=== PATIENT | male | born 1975 | race Caucasian/White ===

== ENCOUNTER 2017-08-22 17:26 | Inpatient (IN) ==
[2017-08-22 20:06] LABS: BASOPHILS % (AUTO) 0.8 % (0.2-1.0); EOSINOPHILS % (AUTO) 0.2 % (0.9-2.9); HEMATOCRIT 35.4 % (42.0-54.0); HEMOGLOBIN 11.7 g/dL (13.5-18.0); LYMPHOCYTES # (AUTO) 1.2 X10^3/uL (1.3-2.9); LYMPHOCYTES % (AUTO) 21.2 % (21.0-51.0); MEAN CORPUSCULAR HEMOGLOBIN 27.2 pg (27.0-34.0); MEAN CORPUSCULAR VOLUME 82.4 fL (80.0-100.0); MEAN PLATELET VOLUME 6.9 fL (7.4-11.0); MONOCYTES # (AUTO) 0.9 x10^3/uL (0.3-0.8); MONOCYTES % (AUTO) 15.7 % (0.0-13.0); NEUTROPHILS # (AUTO) 3.6 x10^3/uL (2.2-4.8); NEUTROPHILS % (AUTO) 62.1 % (42.0-75.0); PLATELET COUNT 327 X10^3/uL (150.0-450.0); RED CELL DISTRIBUTION WIDTH 17.9 % (11.6-16.5); WHITE BLOOD COUNT 5.8 X10^3/uL (3.6-10.0)
[2017-08-22 20:14] LABS: ALANINE AMINOTRANSFERASE 22 Units/L (12-78); ALBUMIN 2.2 g/dL (3.4-5.0); ALKALINE PHOSPHATASE 124 Units/L (46-116); ASPARTATE AMINO TRANSFERASE 23 Units/L (15-37); BLOOD UREA NITROGEN 18 mg/dL (7-18); CALCIUM 8.4 mg/dL (8.5-10.1); CARBON DIOXIDE 30.3 mmol/L (21-32); CHLORIDE 98 mmol/L (98-107); COR CA(FOR HYPOALB) 9.8 mg/dL (8.5-10.1); COR NA(FOR HYPERGLY) 136 mmol/L (136-145); CREATININE 0.75 mg/dL (0.70-1.30); SODIUM 135 mmol/L (136-145); TOTAL PROTEIN 6.5 g/dL (6.4-8.2); eGFR NON BLACK RACES > 60 (>60)
--- NOTE | 2017-08-22 21:20 | US ---
HISTORY: Abdominal pain and distention Study: Ultrasound the abdomen Comparison: None Technique: Multiple bennett scale and color flow Doppler images of the abdomen were obtained. Findings: The liver was incompletely visualized due to shadowing from overlying ribs and bowel gas. No definite shadowing echogenic stones are appreciated within the gallbladder. The right kidney measures 13.1 x 5.9 x 7.0 cm. The left kidney, spleen, pancreas, and inferior vena cava were not visualized/obscured by bowel. IMPRESSION: 1. Limited exam demonstrates no gross abnormalities as noted above. Reported By:
[2017-08-22 22:03] VITALS: BMI 29.5
[2017-08-23] MEDS ORDERED: TYLENOL SUPP 650 MG PR PRN (03:28)
[2017-08-23 04:11] LABS: EOSINOPHILS % (AUTO) 0.2 % (0.9-2.9); HEMATOCRIT 31.9 % (42.0-54.0); HEMOGLOBIN 10.8 g/dL (13.5-18.0); LYMPHOCYTES # (AUTO) 0.8 X10^3/uL (1.3-2.9); LYMPHOCYTES % (AUTO) 19.5 % (21.0-51.0); MEAN CORPUSCULAR HEMOGLOBIN 27.7 pg (27.0-34.0); MEAN CORPUSCULAR HGB CONC 33.8 g/dL (33.0-35.0); MEAN CORPUSCULAR VOLUME 81.9 fL (80.0-100.0); MEAN PLATELET VOLUME 6.8 fL (7.4-11.0); MONOCYTES # (AUTO) 0.6 x10^3/uL (0.3-0.8); MONOCYTES % (AUTO) 14.3 % (0.0-13.0); NEUTROPHILS # (AUTO) 2.7 x10^3/uL (2.2-4.8); PLATELET COUNT 282 X10^3/uL (150.0-450.0); RED CELL DISTRIBUTION WIDTH 17.5 % (11.6-16.5); WHITE BLOOD COUNT 4.2 X10^3/uL (3.6-10.0)
[2017-08-23 04:28] LABS: ALANINE AMINOTRANSFERASE 21 Units/L (12-78); ALKALINE PHOSPHATASE 104 Units/L (46-116); ASPARTATE AMINO TRANSFERASE 24 Units/L (15-37); BLOOD UREA NITROGEN 17 mg/dL (7-18); CALCIUM 8.1 mg/dL (8.5-10.1); CARBON DIOXIDE 29.9 mmol/L (21-32); CHLORIDE 99 mmol/L (98-107); COR CA(FOR HYPOALB) 9.7 mg/dL (8.5-10.1); CREATININE 0.71 mg/dL (0.70-1.30); TOTAL PROTEIN 5.7 g/dL (6.4-8.2); eGFR NON BLACK RACES > 60 (>60)
[2017-08-23 04:33] LABS: COR NA(FOR HYPERGLY) 134 mmol/L (136-145); SODIUM 133 mmol/L (136-145)
[2017-08-23] MEDS ORDERED: K-LYTE EFFERVESCENT PO PRN (04:41)
[2017-08-23] MEDS ORDERED: POTASSIUM CHL 40 MEQ/NS 0.45% 500 ML IV PRN (04:41)
[2017-08-23] MEDS ORDERED: POTASSIUM CHLORIDE LIQ 20 MEQ UDC PO PRN (04:41)
[2017-08-23] MEDS ORDERED: POTASSIUM CHL 60 MEQ/NS 0.45% 500 ML IV PRN (04:41)
[2017-08-23] MEDS ORDERED: K-RIDER 10 MEQ/NS 100 ML 10 MEQ/100 ML BAG IV PRN ×2 (04:41→04:43)
[2017-08-23] MEDS ORDERED: MAGNESIUM SULFATE 1 GRAM/100 mL PREMIX 1 GM/100 ML BAG IV PRN (04:43)
[2017-08-23] MEDS ORDERED: NS 250 ML IV 250 ML IV ONE (05:39)
[2017-08-23] MEDS ORDERED: ZOFRAN TAB 4 MG PO PRN (08:30)
[2017-08-23] MEDS ORDERED: ALPRAZOLAM 2 MG PO PRN (08:30)
[2017-08-23] MEDS ORDERED: LOMOTIL PO PRN (08:30)
[2017-08-23] MEDS ORDERED: DURAGESIC 100 mcg/HR PATCH TD SCH (09:00)
[2017-08-23] MEDS ORDERED: XANAX PO SCH (11:00)
[2017-08-23] MEDS ORDERED: TYLENOL 325 MG TAB PO PRN (12:10)
--- NOTE | 2017-08-23 12:16 | DR.H&P ---
H&P - History & Physical for Day of: H&P Date: 08/22/17 - Chief Complaint Chief Complaint: abdominal pain and distention - History of Present Illness History of Present Illness: is a 41 year old patient of ours who presented to the hospital as a direct admission from [facility] with reports of abdominal pain and distention as well as a swollen scrotum. Patient was given dilaudid 2mg po x 4 doses today without improvement in pain. He denies regular bowel movements due to frequent use of narcotics. Patient states that eariler today he was given medications for bowels and had a large bowel movement prior to admission. He reports improvement in pain and swelling since having a bowel movement. Medical History: Migraines, Heart Murmor, Gerd, Constipation, Diarrhea, Neuromuscular Dysfunction of Bladder, Back Pain, Paraplegia, Polyneuropathy, Anemia, DVT, Malignant Melanoma w/Metastisis. On admission, vitals were 97.9-00-22-92%ra-98/73. Labs were obtained. Abnormal lab values include the following: RBC 4.30, Hgb 11.7, Hct 35.4, RDW 17.9, MPV 6.9, Sodium 135, Potassium 3.1, Glucose 128, Calcium 8.4, Alk Phos 124, Albumin 2.2, A/G Ratio 0.5. An abdomen Ultrasound was obtained and revealed: The liver was incompletely visualized due to shadowing from overlying ribs and bowel gas. No definite shadowing echogenic stones are appreciated within the gallbladder. The right kidney measures 13.1 x 5.9 x 7.0 cm. The left kidney, spleen, pancreas, and inferior vena cava were not visualized/obscured by bowel. was consulted and no surgical intervention is recommended at this time. We plan to follow up with am labs and continue to monitor patient. - Past Medical History Past Medical History: Anemia, Migraines, GERD Additional Medical History: constipation, constipation, neuomuscular dysfunction of bladder, paraplegia, polyneuropathy, dvt, malignant melanoma wiht metastisis, back pain - Social History Alcohol Use: None Drug Use: None - Medications Home Medications: Penicillins Allergy (Verified 08/23/17 02:41) Sulfa (Sulfonamide Antibiotics) Allergy (Verified 08/23/17 02:41) CONTINUE taking the following medications alprazolam [Xanax] 2 mg PO DAILY PRN 08/22/17 [History] amitriptyline 2 tab PO HS 08/22/17 [History] apixaban [Eliquis] 1 tab PO BID 08/22/17 [History] carisoprodol 350 mg PO TID 08/22/17 [History] dabrafenib 2 cap PO BID 08/22/17 [History] dabrafenib [Tafinlar] 2 cap PO Q12H 08/22/17 [History] dexamethasone 1 tab PO BID 08/22/17 [History] diphenoxylate-atropine [Lomotil] 2 tab PO QID 08/22/17 [History] doxycycline hyclate 100 mg PO BID 08/22/17 [History] fentanyl See Label Instructions .ROUTE .COMPLEX 08/22/17 [History] fentanyl [Duragesic] See Label Instructions .ROUTE .COMPLEX 08/22/17 [History] furosemide [Lasix] 1 tab PO BID 08/22/17 [History] gabapentin 1 cap PO TID 08/22/17 [History] hydromorphone 1 tab PO Q2H PRN 08/22/17 [History] obkjzi-nyilhuyf-dackcgd [Creon] 1 cap PO AC 08/22/17 [History] lorazepam [Ativan] 2 mg PO HS PRN 08/22/17 [History] metoclopramide HCl [Reglan] 1 tab PO QID 08/22/17 [History] ondansetron HCl [Zofran] 1 tab PO Q6H PRN 08/22/17 [History] pantoprazole 1 tab PO DAILY 08/22/17 [History] potassium chloride 40 meq PO BID 08/22/17 [History] ranitidine HCl [Zantac] 1 tab PO BID 08/22/17 [History] trametinib [Mekinist] 1 tab PO DAILY 08/22/17 [History] - Review of Systems Constitutional: Weakness Eyes: No Symptoms Reported ENT: No Symptoms Reported Respiratory: No Symptoms Reported Cardiovascular: No Symptoms Reported Gastrointestinal: See HPI, Abdominal Pain, Constipation Genitourinary: No Symptoms Reported Musculoskeletal: Back Pain Skin: No Symptoms Reported Neurological: Weakness - Physical Exam Vital Signs: Temperature 102.1 F Pulse Rate [Left Radial] 120 Respiratory Rate 24 Blood Pressure [Left Arm] 111/67 O2 Sat by Pulse Oximetry 91 Oriented: Normal Eyes: Normal Ear: Normal Nose: Normal Throat: Normal Respiratory: Diminished Throughout Cardiovascular: Murmur. negative: S3, S4 : Normal Auscultation: Bowel Sounds: Decreased Palpation: Normal Tenderness: Diffuse, Moderate, Guarding. negative: Rebound, Rigidity Skin: Normal Musculoskeletal: Back:Lumbar Psychiatric: Normal Mood Description: Calm Affect: Normal Speech Pattern: Clear - Assessment/Plan (1) Abdominal pain Qualifiers: Abdominal location: generalized Qualified Code(s): R10.84 - Generalized abdominal pain Status: Acute - Allergies Allergies/Adverse Reactions: Allergies Allergy/AdvReac Type Severity Reaction Status Date / Time Penicillins Allergy Verified 08/23/17 02:41 Sulfa (Sulfonamide Allergy Verified 08/23/17 02:41 Antibiotics)
[2017-08-23] MEDS: MICRO K EXTEN CAP 10 MEQ PO SCH ×2 (12:31→21:00)
[2017-08-23] MEDS: DECADRON TAB PO SCH ×2 (12:31→21:02)
[2017-08-23] MEDS: ZANTAC PO SCH ×2 (12:31→21:00)
[2017-08-23] MEDS: NEURONTIN CAP 300 MG PO SCH ×3 (12:32→21:01)
[2017-08-23] MEDS: REGLAN TAB 10 MG PO SCH ×4 (12:32→21:02)
[2017-08-23] MEDS: SOMA TAB 350 MG PO SCH ×3 (12:32→21:01)
[2017-08-23] MEDS: CREON PO SCH ×2 (12:32→17:30)
[2017-08-23] MEDS: PROTONIX TAB 40 MG PO SCH (12:32)
[2017-08-23] MEDS: DABRAFENIB PO SCH ×2 (12:37→21:03)
[2017-08-23] MEDS: TRAMETINIB PO SCH (12:39)
[2017-08-23] MEDS ORDERED: DILAUDID PO ONE (12:45)
[2017-08-23] MEDS: DILAUDID PO PRN (12:51)
[2017-08-23] MEDS: XANAX PO PRN (12:51)
--- NOTE | 2017-08-23 17:30 | DR.PROGNOT ---
Hospital Progress Notes - Progress Note for Day of: Progress Note Date: 08/23/17 - Chief Complaint Chief Complaint: less abdominal pain but still distended . no nausea or vomiting today ,. abdominal US showed no significant ascitis , - Past Medical Family Social History Past Med/Fam/Surg Hx: No changes since H&P Allergies: Allergies Penicillins Allergy (Verified 08/23/17 02:41) Sulfa (Sulfonamide Antibiotics) Allergy (Verified 08/23/17 02:41) - Review Of Systems ROS: No change since H&P - Vital Signs Vital Signs: Temperature 102.1 F Pulse Rate [Left Radial] 120 Respiratory Rate 24 Blood Pressure [Left Arm] 111/67 O2 Sat by Pulse Oximetry 91 - Physical Exam Oriented: Normal Eyes: Normal Ear: Normal Nose: Normal Throat: Normal Cardiovascular: Murmur. negative: S3, S4 : Normal GI:Auscultation: Decreased GI:Palpation: Normal GI: Tenderness: Diffuse, Moderate. negative: Rebound, Rigidity Skin: Normal Musculoskeletal: Back:Lumbar Psychiatric: Normal Mood Description: Calm Affect: Normal Speech Pattern: Clear - Laboratory and Diagnostics Result Diagrams: 08/23/17 03:51 08/23/17 03:51 Labs: Laboratory WBC 4.2 X10^3/uL (3.6-10.0) 08/23/17 03:51 RBC 3.90 X10^6/uL (4.7-6.0) L 08/23/17 03:51 Hgb 10.8 g/dL (13.5-18.0) L 08/23/17 03:51 Hct 31.9 % (42.0-54.0) L 08/23/17 03:51 MCV 81.9 fL (80.0-100.0) 08/23/17 03:51 MCH 27.7 pg (27.0-34.0) 08/23/17 03:51 MCHC 33.8 g/dL (33.0-35.0) 08/23/17 03:51 RDW 17.5 % (11.6-16.5) H 08/23/17 03:51 Plt Count 282 X10^3/uL (150.0-450.0) 08/23/17 03:51 MPV 6.8 fL (7.4-11.0) L 08/23/17 03:51 Neut % (Auto) 65.0 % (42.0-75.0) 08/23/17 03:51 Lymph % (Auto) 19.5 % (21.0-51.0) L 08/23/17 03:51 [place] % (Auto) 14.3 % (0.0-13.0) H 08/23/17 03:51 Eos % (Auto) 0.2 % (0.9-2.9) L 08/23/17 03:51 Baso % (Auto) 1.0 % (0.2-1.0) 08/23/17 03:51 Neut # (Auto) 2.7 x10^3/uL (2.2-4.8) 08/23/17 03:51 Lymph # (Auto) 0.8 X10^3/uL (1.3-2.9) L 08/23/17 03:51 [place] # (Auto) 0.6 x10^3/uL (0.3-0.8) 08/23/17 03:51 Eos # (Auto) 0.0 x10^3/uL (0.0-0.2) 08/23/17 03:51 Baso # (Auto) 0.0 X10^3/uL (0.0-0.1) 08/23/17 03:51 Absolute Nucleated RBC 0.1 /100WBC 08/23/17 03:51 Sodium 133 mmol/L (136-145) L 08/23/17 03:51 Corrected Sodium 134 mmol/L (136-145) L 08/23/17 03:51 Potassium 2.9 mmol/L (3.5-5.1) L* 08/23/17 03:51 Chloride 99 mmol/L (98-107) 08/23/17 03:51 Carbon Dioxide 29.9 mmol/L (21-32) 08/23/17 03:51 BUN 17 mg/dL (7-18) 08/23/17 03:51 Creatinine 0.71 mg/dL (0.70-1.30) 08/23/17 03:51 Est GFR (MDRD) Af Amer > 60 (>60) 08/23/17 03:51 Est GFR (MDRD) Non-Af > 60 (>60) 08/23/17 03:51 Glucose 135 mg/dL (65-99) H 08/23/17 03:51 Calcium 8.1 mg/dL (8.5-10.1) L 08/23/17 03:51 Corrected Calcium 9.7 mg/dL (8.5-10.1) 08/23/17 03:51 Magnesium 1.5 mg/dL (1.7-2.9) L 08/23/17 03:51 Total Bilirubin 0.20 mg/dL (0.2-1.0) 08/23/17 03:51 AST 24 Units/L (15-37) 08/23/17 03:51 ALT 21 Units/L (12-78) 08/23/17 03:51 Alkaline Phosphatase 104 Units/L (46-116) 08/23/17 03:51 Total Protein 5.7 g/dL (6.4-8.2) L 08/23/17 03:51 Albumin 2.0 g/dL (3.4-5.0) L 08/23/17 03:51 Globulin 3.7 g/dL (2.5-4.5) 08/23/17 03:51 Albumin/Globulin Ratio 0.5 Ratio (1.1-2.1) L 08/23/17 03:51 - Assessment and Plan 1: abdominal pain and distention . ileus . metastatic melanoma . no need for parasenthesis now - Problem Patient Problems: Patient Problems Abdominal pain (Acute) R10.9
[2017-08-23] MEDS: ATIVAN TAB 1 MG PO PRN (21:00)
[2017-08-23] MEDS: ELAVIL PO SCH (21:00)
[2017-08-23] MEDS: MAG-OX TAB PO SCH (21:02)
[2017-08-24] MEDS: NEURONTIN CAP 300 MG PO SCH ×3 (05:49→22:31)
[2017-08-24] MEDS: SOMA TAB 350 MG PO SCH ×3 (05:50→22:31)
[2017-08-24] MEDS: CREON PO SCH ×3 (06:04→17:43)
[2017-08-24 06:47] LABS: BASOPHILS % (AUTO) 0.5 % (0.2-1.0); EOSINOPHILS % (AUTO) 0.1 % (0.9-2.9); HEMATOCRIT 29.7 % (42.0-54.0); HEMOGLOBIN 10.1 g/dL (13.5-18.0); LYMPHOCYTES # (AUTO) 0.6 X10^3/uL (1.3-2.9); LYMPHOCYTES % (AUTO) 17.1 % (21.0-51.0); MEAN CORPUSCULAR HEMOGLOBIN 27.9 pg (27.0-34.0); MEAN CORPUSCULAR VOLUME 82.2 fL (80.0-100.0); MEAN PLATELET VOLUME 7.1 fL (7.4-11.0); MONOCYTES # (AUTO) 0.4 x10^3/uL (0.3-0.8); MONOCYTES % (AUTO) 11.8 % (0.0-13.0); NEUTROPHILS # (AUTO) 2.5 x10^3/uL (2.2-4.8); NEUTROPHILS % (AUTO) 70.5 % (42.0-75.0); PLATELET COUNT 268 X10^3/uL (150.0-450.0); RED BLOOD COUNT 3.61 X10^6/uL (4.7-6.0); RED CELL DISTRIBUTION WIDTH 17.1 % (11.6-16.5); WHITE BLOOD COUNT 3.6 X10^3/uL (3.6-10.0)
[2017-08-24 07:12] LABS: ALANINE AMINOTRANSFERASE 24 Units/L (12-78); ALBUMIN 1.9 g/dL (3.4-5.0); ALKALINE PHOSPHATASE 109 Units/L (46-116); ASPARTATE AMINO TRANSFERASE 32 Units/L (15-37); BLOOD UREA NITROGEN 14 mg/dL (7-18); CALCIUM 8.7 mg/dL (8.5-10.1); CARBON DIOXIDE 30.1 mmol/L (21-32); CHLORIDE 102 mmol/L (98-107); COR CA(FOR HYPOALB) 10.4 mg/dL (8.5-10.1); COR NA(FOR HYPERGLY) 137 mmol/L (136-145); CREATININE 0.53 mg/dL (0.70-1.30); SODIUM 137 mmol/L (136-145); TOTAL PROTEIN 5.7 g/dL (6.4-8.2); eGFR NON BLACK RACES > 60 (>60)
[2017-08-24] MEDS: PROTONIX TAB 40 MG PO SCH (09:12)
[2017-08-24] MEDS: MICRO K EXTEN CAP 10 MEQ PO SCH ×2 (09:12→20:15)
[2017-08-24] MEDS: REGLAN TAB 10 MG PO SCH ×4 (09:12→20:14)
[2017-08-24] MEDS: LASIX PO SCH ×2 (09:13→20:16)
[2017-08-24] MEDS: MAG-OX TAB PO SCH ×2 (09:13→20:16)
[2017-08-24] MEDS: ZANTAC PO SCH ×2 (09:13→20:16)
[2017-08-24] MEDS: DECADRON TAB PO SCH ×2 (09:13→20:16)
[2017-08-24] MEDS: TRAMETINIB PO SCH (09:14)
[2017-08-24] MEDS: DABRAFENIB PO SCH ×2 (09:14→20:13)
[2017-08-24] MEDS: XANAX PO PRN (12:02)
[2017-08-24] MEDS ORDERED: DILAUDID PO ONE ×2 (20:00→23:14)
[2017-08-24] MEDS: DILAUDID PO PRN (20:14)
[2017-08-24] MEDS: ATIVAN TAB 1 MG PO PRN (20:15)
[2017-08-24] MEDS: ELAVIL PO SCH (20:16)
--- NOTE | 2017-08-24 21:35 | PCM.PROG ---
Progress Note - Progress Note for Day of Date of Exam: 08/23/17 - Subjective Subjective: WAS ADMITTED FOR ABDOMINAL PAIN AND SWELLING. TODAY, HE IS LYING IN BED WITH EYES CLOSED ON MORNING ROUNDS. HE IS DIFFICULT TO AROUSE THIS MORNING. FAMILY REPORTS THAT HE HAS BEEN RESTLESS THROUGHOUT THE NIGHT. THEY REPORT THAT PATIENT DID ADMIT TO FEELING BETTER AFTER HAVING A BOWEL MOVEMENT YESTERDAY. ON EXAMINATION, HEART IS REGULAR IN RATE AND RHYTHM. BILATERAL LUNGS ARE NOTED WITH DIMINISHED LUNG SOUNDS THROUGHOUT. ABDOMEN IS DISTENDED WITH HYPOACTIVE BOWEL SOUNDS THROUGHOUT. HIS VITALS THIS MORNING ARE 99.2-110-18-96%-115/78. ABNORMAL LABS INCLUDE THE FOLLOWING: RBC 3.90, HGB 10.8 , HCT 31.9, SODIUM 133, POTASSIUM 2.9, GLUOCSE 135, CALCIUM 8.1, MAGNESIUM 1.5, TOTAL PROTEIN 5.7, ALBUMIN 2.0. ABDOMEN ULTRASOUND OBTAINED ON ADMISSION REVEALED: The liver was incompletely visualized due to shadowing from overlying ribs and bowel gas. No definite shadowing echogenic stones are appreciated within the gallbladder. The right kidney measures 13.1 x 5.9 x 7.0 cm. The left kidney, spleen, pancreas, and inferior vena cava were not visualized/obscured by bowel. TODAY, WE WILL START COLACE 100MG PO BID. OTHERWISE, WE WILL CONTINUE WITH CURRENT PLAN OF CARE. WE PLAN TO FOLLOW UP WITH AM LABS AND CONTINUE TO MONITOR PATIENT. - Past Medical Family Social History Past Med/Fam/Surg Hx: No changes since H&P Allergies: Allergies Penicillins Allergy (Verified 08/23/17 02:41) Sulfa (Sulfonamide Antibiotics) Allergy (Verified 08/23/17 02:41) - Review of Systems ROS: No change since H&P - Vital Signs and I&O's Vital Signs: Temperature 97.9 F Pulse Rate [Left Brachial] 102 Pulse Rate [Left Radial] 120 Respiratory Rate 20 Blood Pressure [Left Arm] 110/73 O2 Sat by Pulse Oximetry 98 Intake and Output: Intake & Output 08/22/17 08/23/17 08/24/17 08/25/17 11:59 11:59 11:59 11:59 Intake Total 210 / 210 740 / 740 940 / 940 Output Total 800 / 800 1400 / 1400 1000 / 1000 Balance -590 / -590 -660 / -660 -60 / -60 - Physical Exam Oriented: Normal Eyes: Normal Ear: Normal Nose: Normal Throat: Normal Respiratory: Generalized, Diminished Cardiovascular: Murmur. negative: S3, S4 : Normal Auscultation: Bowel Sounds: Decreased Palpation: Normal Tenderness: Diffuse, Moderate. negative: Rebound, Rigidity Skin: Normal Musculoskeletal: Back:Lumbar Psychiatric: Normal Mood Description: Calm Affect: Normal Speech Pattern: Clear, Appropriate - Laboratory and Diagnostics Result Diagrams: 08/24/17 05:55 08/24/17 05:55 Labs: Laboratory WBC 3.6 X10^3/uL (3.6-10.0) 08/24/17 05:55 RBC 3.61 X10^6/uL (4.7-6.0) L 08/24/17 05:55 Hgb 10.1 g/dL (13.5-18.0) L 08/24/17 05:55 Hct 29.7 % (42.0-54.0) L 08/24/17 05:55 MCV 82.2 fL (80.0-100.0) 08/24/17 05:55 MCH 27.9 pg (27.0-34.0) 08/24/17 05:55 MCHC 34.0 g/dL (33.0-35.0) 08/24/17 05:55 RDW 17.1 % (11.6-16.5) H 08/24/17 05:55 Plt Count 268 X10^3/uL (150.0-450.0) 08/24/17 05:55 MPV 7.1 fL (7.4-11.0) L 08/24/17 05:55 Neut % (Auto) 70.5 % (42.0-75.0) 08/24/17 05:55 Lymph % (Auto) 17.1 % (21.0-51.0) L 08/24/17 05:55 [place] % (Auto) 11.8 % (0.0-13.0) 08/24/17 05:55 Eos % (Auto) 0.1 % (0.9-2.9) L 08/24/17 05:55 Baso % (Auto) 0.5 % (0.2-1.0) 08/24/17 05:55 Neut # (Auto) 2.5 x10^3/uL (2.2-4.8) 08/24/17 05:55 Lymph # (Auto) 0.6 X10^3/uL (1.3-2.9) L 08/24/17 05:55 [place] # (Auto) 0.4 x10^3/uL (0.3-0.8) 08/24/17 05:55 Eos # (Auto) 0.0 x10^3/uL (0.0-0.2) 08/24/17 05:55 Baso # (Auto) 0.0 X10^3/uL (0.0-0.1) 08/24/17 05:55 Absolute Nucleated RBC 0.0 /100WBC 08/24/17 05:55 Sodium 137 mmol/L (136-145) 08/24/17 05:55 Corrected Sodium 137 mmol/L (136-145) 08/24/17 05:55 Potassium 4.5 mmol/L (3.5-5.1) 08/24/17 05:55 Chloride 102 mmol/L (98-107) 08/24/17 05:55 Carbon Dioxide 30.1 mmol/L (21-32) 08/24/17 05:55 BUN 14 mg/dL (7-18) 08/24/17 05:55 Creatinine 0.53 mg/dL (0.70-1.30) L 08/24/17 05:55 Est GFR (MDRD) Af Amer > 60 (>60) 08/24/17 05:55 Est GFR (MDRD) Non-Af > 60 (>60) 08/24/17 05:55 Glucose 112 mg/dL (65-99) H 08/24/17 05:55 Calcium 8.7 mg/dL (8.5-10.1) 08/24/17 05:55 Corrected Calcium 10.4 mg/dL (8.5-10.1) H 08/24/17 05:55 Magnesium 1.5 mg/dL (1.7-2.9) L 08/23/17 03:51 Total Bilirubin 0.20 mg/dL (0.2-1.0) 08/24/17 05:55 AST 32 Units/L (15-37) 08/24/17 05:55 ALT 24 Units/L (12-78) 08/24/17 05:55 Alkaline Phosphatase 109 Units/L (46-116) 08/24/17 05:55 Total Protein 5.7 g/dL (6.4-8.2) L 08/24/17 05:55 Albumin 1.9 g/dL (3.4-5.0) L 08/24/17 05:55 Globulin 3.8 g/dL (2.5-4.5) 08/24/17 05:55 Albumin/Globulin Ratio 0.5 Ratio (1.1-2.1) L 08/24/17 05:55 - Plan (1) Abdominal pain Status: Acute Qualifiers: Abdominal location: generalized Qualified Code(s): R10.84 - Generalized abdominal pain Plan: CONTINUE PAIN MEDICATION, COLACE 100MG PO BID, CONTINUE TO MONITOR
[2017-08-25] MEDS: DILAUDID PO PRN ×2 (00:08→11:20)
[2017-08-25] MEDS: DECADRON TAB PO SCH ×2 (01:44→08:34)
[2017-08-25] MEDS ORDERED: DILAUDID PO ONE ×2 (04:48→11:11)
[2017-08-25 05:23] LABS: BASOPHILS % (AUTO) 0.3 % (0.2-1.0); EOSINOPHILS % (AUTO) 0.9 % (0.9-2.9); HEMATOCRIT 30.3 % (42.0-54.0); HEMOGLOBIN 10.3 g/dL (13.5-18.0); LYMPHOCYTES # (AUTO) 1.4 X10^3/uL (1.3-2.9); LYMPHOCYTES % (AUTO) 28.5 % (21.0-51.0); MEAN CORPUSCULAR HEMOGLOBIN 27.6 pg (27.0-34.0); MEAN CORPUSCULAR HGB CONC 33.9 g/dL (33.0-35.0); MEAN CORPUSCULAR VOLUME 81.4 fL (80.0-100.0); MEAN PLATELET VOLUME 7.2 fL (7.4-11.0); MONOCYTES # (AUTO) 0.7 x10^3/uL (0.3-0.8); MONOCYTES % (AUTO) 15.5 % (0.0-13.0); NEUTROPHILS # (AUTO) 2.6 x10^3/uL (2.2-4.8); NEUTROPHILS % (AUTO) 54.8 % (42.0-75.0); PLATELET COUNT 298 X10^3/uL (150.0-450.0); RED BLOOD COUNT 3.72 X10^6/uL (4.7-6.0); RED CELL DISTRIBUTION WIDTH 17.7 % (11.6-16.5); WHITE BLOOD COUNT 4.8 X10^3/uL (3.6-10.0)
[2017-08-25 05:34] LABS: ALANINE AMINOTRANSFERASE 25 Units/L (12-78); ALKALINE PHOSPHATASE 98 Units/L (46-116); ASPARTATE AMINO TRANSFERASE 26 Units/L (15-37); BLOOD UREA NITROGEN 14 mg/dL (7-18); CALCIUM 8.6 mg/dL (8.5-10.1); CARBON DIOXIDE 29.3 mmol/L (21-32); CHLORIDE 100 mmol/L (98-107); COR CA(FOR HYPOALB) 10.2 mg/dL (8.5-10.1); SODIUM 136 mmol/L (136-145); TOTAL PROTEIN 5.9 g/dL (6.4-8.2); eGFR NON BLACK RACES > 60 (>60)
--- NOTE | 2017-08-25 06:04 | RAD ---
Abdomen radiograph-single view Indication: Constipation Comparison: 08/08/2017 CT and 08/22/2017 ultrasound Findings: There is gas and stool in the colon with dilated rectum. No free air or pneumatosis seen. Impression: Dilated loops of colon. This appears to represent the rectum, but colonic obstruction is not excluded. Sigmoid volvulus not completely excluded either. Consider cross-sectional imaging follo w-up. Reported By:
[2017-08-25] MEDS: SOMA TAB 350 MG PO SCH ×2 (06:37→13:23)
[2017-08-25] MEDS: NEURONTIN CAP 300 MG PO SCH ×2 (06:37→13:23)
[2017-08-25] MEDS: CREON PO SCH ×2 (06:38→12:00)
[2017-08-25] MEDS: MAG-OX TAB PO SCH (08:33)
[2017-08-25] MEDS: ZANTAC PO SCH (08:33)
[2017-08-25] MEDS: LASIX PO SCH (08:34)
[2017-08-25] MEDS: XANAX PO SCH ×2 (08:34→13:10)
[2017-08-25] MEDS: REGLAN TAB 10 MG PO SCH ×2 (08:34→13:10)
[2017-08-25] MEDS: MICRO K EXTEN CAP 10 MEQ PO SCH (08:34)
[2017-08-25] MEDS: PROTONIX TAB 40 MG PO SCH (08:34)
[2017-08-25] MEDS: TRAMETINIB PO SCH (08:37)
[2017-08-25] MEDS: DABRAFENIB PO SCH (08:37)
--- NOTE | 2017-08-25 11:35 | RAD ---
Abdomen, one view Indication: Constipation Comparison: 08/24/2017 Findings: Moderate stool and marked gaseous distension of the distal colon is unchanged since yesterd ay's exam. No free air or pneumatosis is identified. Impression: Stable gaseous distension of the distal colon, which again could represent distal colonic obstruction or possibly sigmoid volvulus. Clinical correlation as well as further evaluation with CT should be c onsidered, if indicated. Reported By:
--- NOTE | 2017-08-25 12:58 | PCM.PROG ---
Progress Note - Progress Note for Day of Date of Exam: 08/24/17 - Subjective Subjective: WAS ADMITTED FOR ABDOMINAL PAIN AND SWELLING. TODAY, HE IS ALERT AND ORIENTED, LYING IN BED ON MORNING ROUNDS. HE CONTINUES WITH MILD ABDOMINAL PAIN. HE REPORTS THAT PAIN HAS IMPROVED SINCE HAVING A MODERATE BOWEL MOVEMENT. ON EXAMINATION, HEART IS REGULAR IN RATE AND RHYTHM. BILATERAL LUNGS ARE NOTED WITH DIMINISHED LUNG SOUNDS THROUGHOUT. ABDOMEN IS DISTENDED WITH HYPOACTIVE BOWEL SOUNDS THROUGHOUT. HIS VITALS THIS MORNING ARE 98.2-107-20-94%- 112/76. ABNORMAL LABS INCLUDE THE FOLLOWING: RBC 3.61, HGB 10.1, HCT 29.7, CREATININE 0.53, GLUCOSE 112, TOTAL PROTEIN 5.7, ALBUMIN 1.9. TODAY, WE WILL CONTINUE WITH CURRENT PLAN OF CARE. OTHERWISE WE WILL CONTINUE WITH CURRENT PLAN OF CARE. WE PLAN TO FOLLOW UP WITH AM LABS AND KUB AND WILL CONTINUE TO MONITOR PATIENT. - Past Medical Family Social History Past Med/Fam/Surg Hx: No changes since H&P Allergies: Allergies Penicillins Allergy (Verified 08/23/17 02:41) Sulfa (Sulfonamide Antibiotics) Allergy (Verified 08/23/17 02:41) - Review of Systems ROS: No change since H&P - Vital Signs and I&O's Vital Signs: Temperature 98.7 F Pulse Rate [Left Brachial] 97 Pulse Rate [Left Radial] 120 Respiratory Rate 20 Blood Pressure [Left Arm] 110/69 O2 Sat by Pulse Oximetry 94 Intake and Output: Intake & Output 08/23/17 08/24/17 08/25/17 08/26/17 11:59 11:59 11:59 11:59 Intake Total 210 / 210 740 / 740 1360 / 1360 Output Total 800 / 800 1400 / 1400 2675 / 2675 Balance -590 / -590 -660 / -660 -1315 / -1315 - Physical Exam Oriented: Normal Eyes: Normal Ear: Normal Nose: Normal Throat: Normal Respiratory: Generalized, Diminished Cardiovascular: Murmur. negative: S3, S4 : Normal Auscultation: Bowel Sounds: Decreased Tenderness: Diffuse, Moderate. negative: Rebound, Rigidity Skin: Normal Musculoskeletal: Back:Lumbar Psychiatric: Normal Mood Description: Calm Affect: Normal Speech Pattern: Clear, Appropriate - Laboratory and Diagnostics Result Diagrams: 08/25/17 04:15 08/25/17 04:15 Labs: 08/23/17 03:51 Blood Blood Culture - Preliminary Laboratory WBC 4.8 X10^3/uL (3.6-10.0) 08/25/17 04:15 RBC 3.72 X10^6/uL (4.7-6.0) L 08/25/17 04:15 Hgb 10.3 g/dL (13.5-18.0) L 08/25/17 04:15 Hct 30.3 % (42.0-54.0) L 08/25/17 04:15 MCV 81.4 fL (80.0-100.0) 08/25/17 04:15 MCH 27.6 pg (27.0-34.0) 08/25/17 04:15 MCHC 33.9 g/dL (33.0-35.0) 08/25/17 04:15 RDW 17.7 % (11.6-16.5) H 08/25/17 04:15 Plt Count 298 X10^3/uL (150.0-450.0) 08/25/17 04:15 MPV 7.2 fL (7.4-11.0) L 08/25/17 04:15 Neut % (Auto) 54.8 % (42.0-75.0) 08/25/17 04:15 Lymph % (Auto) 28.5 % (21.0-51.0) 08/25/17 04:15 [place] % (Auto) 15.5 % (0.0-13.0) H 08/25/17 04:15 Eos % (Auto) 0.9 % (0.9-2.9) 08/25/17 04:15 Baso % (Auto) 0.3 % (0.2-1.0) 08/25/17 04:15 Neut # (Auto) 2.6 x10^3/uL (2.2-4.8) 08/25/17 04:15 Lymph # (Auto) 1.4 X10^3/uL (1.3-2.9) 08/25/17 04:15 [place] # (Auto) 0.7 x10^3/uL (0.3-0.8) 08/25/17 04:15 Eos # (Auto) 0.0 x10^3/uL (0.0-0.2) 08/25/17 04:15 Baso # (Auto) 0.0 X10^3/uL (0.0-0.1) 08/25/17 04:15 Absolute Nucleated RBC 0.1 /100WBC 08/25/17 04:15 Sodium 136 mmol/L (136-145) 08/25/17 04:15 Corrected Sodium TNP 08/25/17 04:15 Potassium 3.7 mmol/L (3.5-5.1) 08/25/17 04:15 Chloride 100 mmol/L (98-107) 08/25/17 04:15 Carbon Dioxide 29.3 mmol/L (21-32) 08/25/17 04:15 BUN 14 mg/dL (7-18) 08/25/17 04:15 Creatinine 0.70 mg/dL (0.70-1.30) 08/25/17 04:15 Est GFR (MDRD) Af Amer > 60 (>60) 08/25/17 04:15 Est GFR (MDRD) Non-Af > 60 (>60) 08/25/17 04:15 Glucose 106 mg/dL (65-99) H 08/25/17 04:15 Calcium 8.6 mg/dL (8.5-10.1) 08/25/17 04:15 Corrected Calcium 10.2 mg/dL (8.5-10.1) H 08/25/17 04:15 Magnesium 1.5 mg/dL (1.7-2.9) L 08/23/17 03:51 Total Bilirubin 0.10 mg/dL (0.2-1.0) L 08/25/17 04:15 AST 26 Units/L (15-37) 08/25/17 04:15 ALT 25 Units/L (12-78) 08/25/17 04:15 Alkaline Phosphatase 98 Units/L (46-116) 08/25/17 04:15 Total Protein 5.9 g/dL (6.4-8.2) L 08/25/17 04:15 Albumin 2.0 g/dL (3.4-5.0) L 08/25/17 04:15 Globulin 3.9 g/dL (2.5-4.5) 08/25/17 04:15 Albumin/Globulin Ratio 0.5 Ratio (1.1-2.1) L 08/25/17 04:15 - Plan (1) Abdominal pain Status: Acute Qualifiers: Abdominal location: generalized Qualified Code(s): R10.84 - Generalized abdominal pain Plan: CONTINUE PAIN MEDICATION, COLACE 100MG PO BID, CONTINUE TO MONITOR
[2017-08-25 13:05] VITALS: BP 100/70
--- NOTE | 2017-09-02 00:51 | DR.CARTERD ---
- Discharge Summary for: Discharge Summary for Date of:: 08/25/17 - Admission Date Date of Admission: 08/22/17 - Admission Diagnoses Admission Diagnosis: (1) Abdominal pain (2) Scrotal edema - Discharge Date Discharge Date: 08/25/17 - Discharge Diagnoses Discharge Diagnosis: (1) Abdominal pain (2) Scrotal edema - Hospital Course Hospital Course: Day one, is a 41 year old patient of ours who presented to the hospital as a direct admission from [facility] with reports of abdominal pain and distention as well as a swollen scrotum. Patient was given dilaudid 2mg po x 4 doses earlier in the day without improvement in pain. He denied regular bowel movements due to frequent use of narcotics. Patient stated that earlier in the day he was given medications for bowels and had a large bowel movement prior to admission. He reported improvement in pain and swelling since having a bowel movement. Medical History: Migraines, Heart Murmor, Gerd, Constipation, Diarrhea, Neuromuscular Dysfunction of Bladder, Back Pain, Paraplegia, Polyneuropathy, Anemia, DVT, Malignant Melanoma w/ Metastasis. On admission, vitals were 97.9-00-22-92%ra-98/73. Labs were obtained. Abnormal lab values include the following: RBC 4.30, Hgb 11.7, Hct 35.4, RDW 17.9, MPV 6.9, Sodium 135, Potassium 3.1, Glucose 128, Calcium 8.4, Alk Phos 124, Albumin 2.2, A/G Ratio 0.5. An abdomen Ultrasound was obtained and revealed: The liver was incompletely visualized due to shadowing from overlying ribs and bowel gas. No definite shadowing echogenic stones were appreciated within the gallbladder. The right kidney measures 13.1 x 5.9 x 7.0 cm. The left kidney, spleen, pancreas , and inferior vena cava were not visualized/obscured by bowel. Dr. Whaley was consulted and no surgical intervention was recommended at that time. We continued to monitor patient. Day two, He was resting in bed with eye closed upon rounds and was difficult to arouse. Family reported that he had been restless throughout the night. They reported that patient did admit to feeling better after having a bowel movement the day before. On examination, heart was regular in rate and rhythm. Bilateral lungs were diminished throughout. Abdomen was distended with hypoactive bowel sounds throughout. His vitals were: 99.2-110-18-96%-115/78. Abnormal labs included: rbc 3.90, hgb 10.8, hct 31.9, sodium 133, potassium 2.9, glucose 135, calcium 8.1, magnesium 1.5, tot protein 5.7, albumin 2.0. We started Colace 100mg po bid and we continued to monitor. Day three, He was alert and oriented. He continued with mild abdominal pain. He reported that pain had improved since having a moderate bowel movement. On examination, heart was regular in rate and rhythm. Bilateral lungs were diminished throughout. Abdomen was distended with hypoactive bowel sounds throughout. His vitals were 98.2-107-20-94%-112/76. Abnormal labs were: rbc 3.61 , hgb 10.1, hct 29.9, glucose 112, tot protein 5.7, albumin 1.9. We continued with treatment and monitored. Day four, Patient reported he was feeling better. Patient denied abdominal pain. Labs wnl. Vital signs stable. We planned for discharge. Instructions for medications and follow up were discussed with patient and family, both voiced understanding. Patient discharged to [facility] in stable condition with staff. - Discharge Medications Discharge Medications: Home Medication List alprazolam [Xanax] 2 mg PO DAILY PRN 08/22/17 [History] amitriptyline 2 tab PO HS 08/22/17 [History] apixaban [Eliquis] 1 tab PO BID 08/22/17 [History] carisoprodol 350 mg PO TID 08/22/17 [History] dabrafenib 2 cap PO BID 08/22/17 [History] dabrafenib [Tafinlar] 2 cap PO Q12H 08/22/17 [History] dexamethasone 1 tab PO BID 08/22/17 [History] diphenoxylate-atropine [Lomotil] 2 tab PO QID 08/22/17 [History] doxycycline hyclate 100 mg PO BID 08/22/17 [History] fentanyl See Label Instructions .ROUTE .COMPLEX 08/22/17 [History] fentanyl [Duragesic] See Label Instructions .ROUTE .COMPLEX 08/22/17 [History] furosemide [Lasix] 1 tab PO BID 08/22/17 [History] gabapentin 1 cap PO TID 08/22/17 [History] hydromorphone 1 tab PO Q2H PRN 08/22/17 [History] eiuvtz-nkwdnjdu-xmmxwky [Creon] 1 cap PO AC 08/22/17 [History] lorazepam [Ativan] 2 mg PO HS PRN 08/22/17 [History] metoclopramide HCl [Reglan] 1 tab PO QID 08/22/17 [History] ondansetron HCl [Zofran] 1 tab PO Q6H PRN 08/22/17 [History] pantoprazole 1 tab PO DAILY 08/22/17 [History] potassium chloride 40 meq PO BID 08/22/17 [History] ranitidine HCl [Zantac] 1 tab PO BID 08/22/17 [History] trametinib [Mekinist] 1 tab PO DAILY 08/22/17 [History] docusate sodium [Colace] 100 mg PO BID #60 cap 08/25/17 [Rx] polyethylene glycol 3350 [Miralax] 17 g PO HS #30 ea 08/25/17 [Rx] Prescriptions: docusate sodium [Colace] Conor Og polyethylene glycol 3350 [Miralax] Conor Og - Discharge Disposition Discharge Disposition: We will follow up with patient in one week at half-way.
== END 2017-08-25 13:50 | DRG 392 ==
LOC: MED/SURG 19:19
PROVIDERS: ADMIT Internal Medicine; ATTEND Internal Medicine
DX: K21.9 Gastro-esophageal reflux disease without esophagitis; B96.29 Other Escherichia coli [E. coli] as the cause of diseases classified elsewhere; C79.89 Secondary malignant neoplasm of other specified sites; K56.7 Ileus, unspecified; F41.8 Other specified anxiety disorders; K59.09 Other constipation; G82.20 Paraplegia, unspecified; R82.99 Other abnormal findings in urine; E88.09 Other disorders of plasma-protein metabolism, not elsewhere classified; R10.84 Generalized abdominal pain; N50.89 Other specified disorders of the male genital organs
CPT/HCPCS: 36415; 74000; 74018; 76700; 80053; 81001; 83735; 85025; 87040; 87086; 87088; 87186; A4216; A4222; J3480; J3490; J7050; J8540

== ENCOUNTER 2017-10-01 10:04 | Inpatient (IN) ==
[2017-10-01] MEDS ORDERED: NS 1000 ML 1,000 ML IV SCH (11:37)
[2017-10-01 12:18] LABS: BASOPHILS # (AUTO) 0.1 X10^3/uL (0.0-0.1); BASOPHILS % (AUTO) 0.6 % (0.2-1.0); EOSINOPHILS % (AUTO) 0.1 % (0.9-2.9); HEMATOCRIT 22.4 % (42.0-54.0); HEMOGLOBIN 7.5 g/dL (13.5-18.0); LYMPHOCYTES # (AUTO) 0.9 X10^3/uL (1.3-2.9); LYMPHOCYTES % (AUTO) 6.7 % (21.0-51.0); MEAN CORPUSCULAR HEMOGLOBIN 28.2 pg (27.0-34.0); MEAN CORPUSCULAR HGB CONC 33.6 g/dL (33.0-35.0); MEAN CORPUSCULAR VOLUME 84.1 fL (80.0-100.0); MEAN PLATELET VOLUME 6.7 fL (7.4-11.0); MONOCYTES # (AUTO) 1.3 x10^3/uL (0.3-0.8); MONOCYTES % (AUTO) 9.3 % (0.0-13.0); NEUTROPHILS # (AUTO) 11.4 x10^3/uL (2.2-4.8); NEUTROPHILS % (AUTO) 83.3 % (42.0-75.0); PLATELET COUNT 528 X10^3/uL (150.0-450.0); RED BLOOD COUNT 2.66 X10^6/uL (4.7-6.0); RED CELL DISTRIBUTION WIDTH 17.7 % (11.6-16.5); WHITE BLOOD COUNT 13.7 X10^3/uL (3.6-10.0)
[2017-10-01 12:30] LABS: ALANINE AMINOTRANSFERASE 13 Units/L (12-78); ALKALINE PHOSPHATASE 148 Units/L (46-116); ASPARTATE AMINO TRANSFERASE 20 Units/L (15-37); BLOOD UREA NITROGEN 10 mg/dL (7-18); CALCIUM 7.4 mg/dL (8.5-10.1); CARBON DIOXIDE 32.1 mmol/L (21-32); CHLORIDE 97 mmol/L (98-107); COR CA(FOR HYPOALB) 9.8 mg/dL (8.5-10.1); COR NA(FOR HYPERGLY) 132 mmol/L (136-145); CREATININE 0.48 mg/dL (0.70-1.30); SODIUM 131 mmol/L (136-145); TOTAL PROTEIN 4.3 g/dL (6.4-8.2); eGFR NON BLACK RACES > 60 (>60)
[2017-10-01] MEDS ORDERED: XANAX PO PRN ×2 (12:32→12:52)
[2017-10-01 12:55] LABS: ANISOCYTOSIS SLIGHT; PLATELET MORPHOLOGY COMMENT NORMAL (NORMAL)
[2017-10-01 12:56] LABS: HYPOCHROMASIA SLIGHT
[2017-10-01] MEDS ORDERED: DURAGESIC 100 mcg/HR PATCH TD SCH (13:00)
[2017-10-01] MEDS ORDERED: DILAUDID PO ONE ×2 (13:36→19:58)
[2017-10-01] MEDS: DILAUDID PO PRN (13:48)
[2017-10-01] MEDS: XANAX PO PRN ×2 (13:48→21:43)
[2017-10-01] MEDS ORDERED: NEURONTIN CAP 300 MG PO SCH (14:00)
[2017-10-01] MEDS ORDERED: SOMA TAB 350 MG PO SCH (14:00)
--- NOTE | 2017-10-01 14:15 | RAD ---
HISTORY: Shortness breath with metastatic melanoma Study: Single-view chest Comparison: 09/30/2017 Findings: The trachea is midline. The cardiac silhouette is unremarkable. The lungs demonstrate persistent di ffuse airspace opacities throughout both lungs with a right-sided with tube noted stable position. Th dorota findings are unchanged.. The bony thorax is unremarkable. IMPRESSION: 1. Stable chest. Reported By:
[2017-10-01 14:43] VITALS: BMI 33.9
[2017-10-01] MEDS ORDERED: LOMOTIL PO PRN (15:32)
[2017-10-01] MEDS ORDERED: ZOFRAN TAB 4 MG PO PRN (15:36)
[2017-10-01 17:32] LABS: BILIRUBIN,URINE NEGATIVE (NEGATIVE); BLOOD/HEMOGLOBIN,URINE 2+ (NEGATIVE); GLUCOSE, URINE NEGATIVE (NEGATIVE); KETONES,URINE NEGATIVE (NEGATIVE); LEUKOCYTE ESTERASE ,URINE 3+ (NEGATIVE); NITRITES,URINE POSITIVE (NEGATIVE); PROTEIN,URINE 2+ (NEGATIVE); UROBILINOGEN,URINE NORMAL (NORMAL)
[2017-10-01 17:36] LABS: COLOR,URINE YELLOW (YELLOW)
[2017-10-01 17:37] LABS: APPEARANCE,URINE CLOUDY (CLEAR)
[2017-10-01 18:04] LABS: AMORPHOUS SEDIMENT,UR TRACE /HPF (NEGATIVE); BACTERIA,URINE 4+ /HPF (NEGATIVE); RBC,URINE 0-2 /HPF (NONE SEEN); SQUAMOUS EPITHELIAL CELL,UR RARE /HPF (NEGATIVE)
[2017-10-01] MEDS: REGLAN TAB 10 MG PO SCH (20:10)
[2017-10-01] MEDS: LASIX PO SCH (20:10)
[2017-10-01] MEDS: ELAVIL PO SCH (20:11)
[2017-10-01] MEDS: K-DUR TAB 20 MEQ PO SCH (20:11)
[2017-10-01] MEDS: ZANTAC PO SCH (20:12)
[2017-10-01] MEDS: CHECK PATCH XX SCH (20:15)
[2017-10-01] MEDS: COLACE CAP 100 MG PO SCH (20:16)
[2017-10-01] MEDS: MIRALAX POWDER (1 DOSE 17 G) PO SCH (20:16)
[2017-10-01] MEDS ORDERED: ATIVAN TAB 1 MG PO PRN (21:00)
[2017-10-01] MEDS: SOMA TAB 350 MG PO SCH (21:42)
[2017-10-01] MEDS: NEURONTIN CAP 300 MG PO SCH (21:42)
[2017-10-02] MEDS: DILAUDID PO PRN ×2 (04:42→11:02)
[2017-10-02 06:07] LABS: BASOPHILS # (AUTO) 0.1 X10^3/uL (0.0-0.1); EOSINOPHILS # (AUTO) 0.1 x10^3/uL (0.0-0.2); EOSINOPHILS % (AUTO) 0.8 % (0.9-2.9); HEMATOCRIT 23.4 % (42.0-54.0); HEMOGLOBIN 7.8 g/dL (13.5-18.0); LYMPHOCYTES # (AUTO) 0.7 X10^3/uL (1.3-2.9); LYMPHOCYTES % (AUTO) 5.1 % (21.0-51.0); MEAN CORPUSCULAR HEMOGLOBIN 28.4 pg (27.0-34.0); MEAN CORPUSCULAR HGB CONC 33.2 g/dL (33.0-35.0); MEAN CORPUSCULAR VOLUME 85.7 fL (80.0-100.0); MEAN PLATELET VOLUME 7.3 fL (7.4-11.0); MONOCYTES # (AUTO) 1.5 x10^3/uL (0.3-0.8); MONOCYTES % (AUTO) 10.7 % (0.0-13.0); NEUTROPHILS # (AUTO) 11.8 x10^3/uL (2.2-4.8); NEUTROPHILS % (AUTO) 82.4 % (42.0-75.0); PLATELET COUNT 524 X10^3/uL (150.0-450.0); RED BLOOD COUNT 2.73 X10^6/uL (4.7-6.0); RED CELL DISTRIBUTION WIDTH 17.2 % (11.6-16.5); WHITE BLOOD COUNT 14.3 X10^3/uL (3.6-10.0)
[2017-10-02] MEDS: NEURONTIN CAP 300 MG PO SCH ×3 (06:13→23:08)
[2017-10-02] MEDS: SOMA TAB 350 MG PO SCH ×3 (06:13→23:08)
[2017-10-02] MEDS: LASIX PO SCH ×2 (06:13→16:59)
[2017-10-02 06:30] LABS: ALANINE AMINOTRANSFERASE 14 Units/L (12-78); ALBUMIN 1.1 g/dL (3.4-5.0); ALKALINE PHOSPHATASE 165 Units/L (46-116); ASPARTATE AMINO TRANSFERASE 24 Units/L (15-37); BLOOD UREA NITROGEN 9 mg/dL (7-18); CALCIUM 7.8 mg/dL (8.5-10.1); CARBON DIOXIDE 32.2 mmol/L (21-32); CHLORIDE 98 mmol/L (98-107); COR CA(FOR HYPOALB) 10.1 mg/dL (8.5-10.1); COR NA(FOR HYPERGLY) 136 mmol/L (136-145); CREATININE 0.44 mg/dL (0.70-1.30); SODIUM 135 mmol/L (136-145); TOTAL PROTEIN 4.7 g/dL (6.4-8.2); eGFR NON BLACK RACES > 60 (>60)
[2017-10-02 07:05] LABS: ANISOCYTOSIS SLIGHT; PLATELET MORPHOLOGY COMMENT NORMAL (NORMAL)
[2017-10-02] MEDS: XANAX PO PRN (08:55)
[2017-10-02] MEDS: CHECK PATCH XX SCH ×2 (09:12→20:50)
[2017-10-02] MEDS: ZANTAC PO SCH ×2 (09:12→23:07)
[2017-10-02] MEDS: REGLAN TAB 10 MG PO SCH ×4 (09:12→23:07)
[2017-10-02] MEDS: PROTONIX TAB 40 MG PO SCH (09:13)
[2017-10-02] MEDS: K-DUR TAB 20 MEQ PO SCH ×2 (09:13→23:07)
[2017-10-02] MEDS: COLACE CAP 100 MG PO SCH ×2 (09:13→21:30)
[2017-10-02] MEDS ORDERED: DILAUDID PO ONE (10:46)
[2017-10-02] MEDS: ELIQUIS PO SCH ×2 (11:02→23:07)
[2017-10-02] MEDS: CIPRO TAB 500 MG PO SCH ×2 (11:02→21:30)
[2017-10-02] MEDS: MIRALAX POWDER (1 DOSE 17 G) PO SCH (21:31)
[2017-10-02] MEDS: ELAVIL PO SCH (23:06)
[2017-10-03] MEDS: XANAX PO PRN ×3 (04:00→20:14)
[2017-10-03 05:16] LABS: BASOPHILS % (AUTO) 0.4 % (0.2-1.0); EOSINOPHILS # (AUTO) 0.1 x10^3/uL (0.0-0.2); EOSINOPHILS % (AUTO) 0.9 % (0.9-2.9); HEMATOCRIT 20.8 % (42.0-54.0); LYMPHOCYTES # (AUTO) 0.5 X10^3/uL (1.3-2.9); LYMPHOCYTES % (AUTO) 4.7 % (21.0-51.0); MEAN CORPUSCULAR HEMOGLOBIN 27.7 pg (27.0-34.0); MEAN PLATELET VOLUME 6.8 fL (7.4-11.0); MONOCYTES # (AUTO) 1.4 x10^3/uL (0.3-0.8); MONOCYTES % (AUTO) 12.4 % (0.0-13.0); NEUTROPHILS # (AUTO) 9.4 x10^3/uL (2.2-4.8); NEUTROPHILS % (AUTO) 81.6 % (42.0-75.0); PLATELET COUNT 490 X10^3/uL (150.0-450.0); RED BLOOD COUNT 2.47 X10^6/uL (4.7-6.0); RED CELL DISTRIBUTION WIDTH 17.2 % (11.6-16.5); WHITE BLOOD COUNT 11.6 X10^3/uL (3.6-10.0)
[2017-10-03 05:36] LABS: ALANINE AMINOTRANSFERASE 14 Units/L (12-78); ALKALINE PHOSPHATASE 159 Units/L (46-116); ASPARTATE AMINO TRANSFERASE 20 Units/L (15-37); BLOOD UREA NITROGEN 8 mg/dL (7-18); CALCIUM 7.4 mg/dL (8.5-10.1); CARBON DIOXIDE 33.7 mmol/L (21-32); CHLORIDE 98 mmol/L (98-107); COR CA(FOR HYPOALB) 9.8 mg/dL (8.5-10.1); COR NA(FOR HYPERGLY) 139 mmol/L (136-145); CREATININE 0.56 mg/dL (0.70-1.30); SODIUM 137 mmol/L (136-145); TOTAL PROTEIN 4.4 g/dL (6.4-8.2); eGFR NON BLACK RACES > 60 (>60)
[2017-10-03 05:52] LABS: HEMOGLOBIN 6.9 g/dL (13.5-18.0)
[2017-10-03] MEDS: SOMA TAB 350 MG PO SCH ×3 (06:22→21:07)
[2017-10-03] MEDS: NEURONTIN CAP 300 MG PO SCH ×3 (06:22→21:07)
[2017-10-03] MEDS: LASIX PO SCH ×2 (06:54→19:21)
--- NOTE | 2017-10-03 07:23 | RAD ---
HISTORY: Shortness of breath Study: Chest AP portable Comparison: 10/03/2017, 09/30/2017 Findings: The heart is enlarged. No definite congestive heart failure is identified. There is a small bore righ t chest catheter in place. It extends to the upper zaire thorax but then the tube is bent back on itse lf with the tip in the right lower zaire thorax. Diffuse increased density is present most prominent p eripherally in the right zaire thorax. This likely represents the patient's known right upper lobe ple ural-based mass. Some associated infiltrate or effusion could not be excluded. The appearance is unch anged from the prior examination. Left perihilar airspace disease is unchanged. Left pleural effusion is unchanged. IMPRESSION: No significant change from the prior examination Reported By:
[2017-10-03] MEDS: PROTONIX TAB 40 MG PO SCH (08:49)
[2017-10-03] MEDS: COLACE CAP 100 MG PO SCH ×3 (08:49→20:13)
[2017-10-03] MEDS: REGLAN TAB 10 MG PO SCH ×4 (08:50→20:14)
[2017-10-03] MEDS: CIPRO TAB 500 MG PO SCH ×2 (08:50→20:13)
[2017-10-03] MEDS: ELIQUIS PO SCH ×2 (08:50→20:13)
[2017-10-03] MEDS: ZANTAC PO SCH ×2 (08:50→20:14)
[2017-10-03] MEDS: K-DUR TAB 20 MEQ PO SCH ×2 (08:51→20:13)
[2017-10-03] MEDS: CHECK PATCH XX SCH ×2 (08:52→20:14)
[2017-10-03] MEDS ORDERED: DILAUDID PO ONE (09:21)
[2017-10-03] MEDS: DILAUDID PO PRN (09:24)
--- NOTE | 2017-10-03 11:01 | DR.H&P ---
H&P - History & Physical for Day of: H&P Date: 10/01/17 - Chief Complaint Chief Complaint: short of breath, weakness, abdominal pain - History of Present Illness History of Present Illness: is a 42 year old patient of ours who presented to the hospital as a direct admission for complaints of shortness of breath and abdominal pain. Patient has a known history of malignant melanoma with metastasis. He was recently being treated in [facility] in [place] where a pleurx catheter system was placed to drain off excessive fluid from lungs. Patient was released home yesterday with visiting nurses. Patient became increasingly short of breath, weak, and began having abdominal pain. Additional medical history includes: Migraines, Heart Murmur, Gerd, Constipation, Diarrhea , Neuromuscular Dysfunction of the bladder, Back Pain, Paraplegia, Polyneuropathy, Anemia, and Anxiety. On examination, abdomen is noted to be distended. Scrotal edema is also noted. There is a stage one sacral ulcer noted without drainage. On arrival, vitals were 99.0-133-22-94%ra-114/68. Labs were obtained. Abnormal lab values include the following: Abnormal Labs: WBC 13.7, RBC 2.66, Hgb 7.5, Hct 22.4, RDW 17.7, Plt Count 528, MPV 6.7, Sodium 131, Corrected Sodium 132, Potassium 3.4, Chloride 97, Carbon Dioxide 32.1, Creatinine 0.48, Glucose 142, Calcium 7.4, Alk Phos 148, Total Protein 4.3, Albumin 1.0, A/G Ratio 0.3. Urinalysis: Catherized, Cloudy, Protein 2+, Occult Blood 2+, Nitrite Positive, Leuk Est 3+, RBC 0-2, WBC Tntc, Bacteria 4+, Culture Pending. Chest X-Ray: Stable chest. He was placed on cipro 750mg po BID and home medications were resumed. 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 We will discuss with case management. Otherwise, we plan to follow up with AM labs and continue to monitor patient. - Past Medical History Past Medical History: Hypertension, Anxiety, Anemia, GERD, Migraines Additional Medical History: constipation, constipation, neuomuscular dysfunction of bladder, paraplegia, polyneuropathy, dvt, malignant melanoma wiht metastisis, back pain - Past Surgical History Surgical History: Tonsillectomy - Social History Does any household member use tobacco: No Alcohol Use: None Drug Use: Prescription Drugs - Medications Home Medications: Penicillins Allergy (Verified 08/23/17 02:41) Sulfa (Sulfonamide Antibiotics) Allergy (Verified 08/23/17 02:41) - Review of Systems Constitutional: Weakness Eyes: No Symptoms Reported ENT: No Symptoms Reported Respiratory: See HPI, Shortness of Breath Cardiovascular: No Symptoms Reported Gastrointestinal: Abdominal Pain Genitourinary: No Symptoms Reported Musculoskeletal: No Symptoms Reported Skin: See HPI, Wound (stage 1 pressure ulcer to sacrum ) Neurological: Weakness - Physical Exam Vital Signs: Temperature 97.9 F Pulse Rate [Right Brachial] 132 Respiratory Rate 20 Blood Pressure [Left Arm] 121/65 Blood Pressure 126/67 O2 Sat by Pulse Oximetry 93 Oriented: Normal Eyes: Normal Ear: Normal Nose: Normal Throat: Normal Respiratory: Diminished Throughout Cardiovascular: Normal, Edema (scrotal). negative: S3, S4, Murmur : Normal Auscultation: Bowel Sounds: Normal Palpation: Normal Tenderness: Suprapubic, Mild. negative: Rebound, Guarding, Rigidity Skin: Wound (stage 1 sacral ulcer ) Musculoskeletal: Sensory Deficit (paraplegic ) Psychiatric: Normal Mood Description: Calm Affect: Normal Speech Pattern: Clear - Assessment/Plan (1) Urinary tract infection Qualifiers: Urinary tract infection type: acute cystitis Hematuria presence: without hematuria Qualified Code(s): N30.00 - Acute cystitis without hematuria Status: Acute Plan: cipro 750mg po bid, continue to monitor (2) Shortness of breath Status: Acute Plan: supplemental oxygen, continue to monitor (3) Malignant melanoma, metastatic Status: Chronic Plan: continue home medications, continue to monitor - Allergies Allergies/Adverse Reactions: Allergies Allergy/AdvReac Type Severity Reaction Status Date / Time Penicillins Allergy Verified 08/23/17 02:41 Sulfa (Sulfonamide Allergy Verified 08/23/17 02:41 Antibiotics)
[2017-10-03] MEDS: MIRALAX POWDER (1 DOSE 17 G) PO SCH (20:13)
[2017-10-03] MEDS: ELAVIL PO SCH (20:13)
[2017-10-03] MEDS ORDERED: NS 250 ML IV 0 ML IV ONE (21:10)
[2017-10-04] MEDS ORDERED: DILAUDID PO ONE ×2 (00:19→23:43)
[2017-10-04] MEDS: DILAUDID PO PRN ×2 (00:23→23:46)
[2017-10-04 05:13] LABS: BASOPHILS # (AUTO) 0.1 X10^3/uL (0.0-0.1); BASOPHILS % (AUTO) 0.3 % (0.2-1.0); EOSINOPHILS % (AUTO) 0.2 % (0.9-2.9); HEMATOCRIT 22.9 % (42.0-54.0); HEMOGLOBIN 7.5 g/dL (13.5-18.0); LYMPHOCYTES # (AUTO) 0.8 X10^3/uL (1.3-2.9); LYMPHOCYTES % (AUTO) 4.7 % (21.0-51.0); MEAN CORPUSCULAR HEMOGLOBIN 27.9 pg (27.0-34.0); MEAN CORPUSCULAR HGB CONC 32.6 g/dL (33.0-35.0); MEAN CORPUSCULAR VOLUME 85.5 fL (80.0-100.0); MEAN PLATELET VOLUME 6.9 fL (7.4-11.0); MONOCYTES % (AUTO) 11.7 % (0.0-13.0); NEUTROPHILS # (AUTO) 14.5 x10^3/uL (2.2-4.8); NEUTROPHILS % (AUTO) 83.1 % (42.0-75.0); PLATELET COUNT 611 X10^3/uL (150.0-450.0); RED BLOOD COUNT 2.68 X10^6/uL (4.7-6.0); RED CELL DISTRIBUTION WIDTH 17.5 % (11.6-16.5); WHITE BLOOD COUNT 17.4 X10^3/uL (3.6-10.0)
[2017-10-04 05:25] LABS: ALANINE AMINOTRANSFERASE 18 Units/L (12-78); ALBUMIN 1.1 g/dL (3.4-5.0); ALKALINE PHOSPHATASE 181 Units/L (46-116); ASPARTATE AMINO TRANSFERASE 25 Units/L (15-37); BLOOD UREA NITROGEN 8 mg/dL (7-18); CARBON DIOXIDE 35.3 mmol/L (21-32); CHLORIDE 99 mmol/L (98-107); COR CA(FOR HYPOALB) 10.3 mg/dL (8.5-10.1); COR NA(FOR HYPERGLY) 137 mmol/L (136-145); CREATININE 0.47 mg/dL (0.70-1.30); SODIUM 136 mmol/L (136-145); TOTAL PROTEIN 4.9 g/dL (6.4-8.2); eGFR NON BLACK RACES > 60 (>60)
[2017-10-04 05:30] LABS: ANISOCYTOSIS SLIGHT; HYPOCHROMASIA SLIGHT; PLATELET MORPHOLOGY COMMENT NORMAL (NORMAL)
[2017-10-04] MEDS: NEURONTIN CAP 300 MG PO SCH ×3 (06:30→22:16)
[2017-10-04] MEDS: SOMA TAB 350 MG PO SCH ×3 (06:30→22:16)
[2017-10-04] MEDS: LASIX PO SCH ×2 (06:30→18:42)
--- NOTE | 2017-10-04 08:14 | PCM.PROG ---
Progress Note - Progress Note for Day of Date of Exam: 10/02/17 - Subjective Subjective: WAS ADMITTED FOR METASTATIC MELANOMA WITH SHORTNESS OF BREATH, ABDOMINAL PAIN, AND A URINARY TRACT INFECTION. TODAY, HE IS ALERT AND ORIENTED, LYING IN BED ON MORNING ROUNDS. HE REPORTS GENERALIZED WEAKNESS AND ABDOMINAL PAIN. HE STATES THAT THE SHORTNESS OF BREATH HAS SLIGHTLY IMPROVED SINCE YESTERDAY. ON EXAMINATION, HEART IS REGULAR IN RATE AND RHYTHM. BILATERAL LUNGS ARE NOTED WITH DIMINISHED LUNG SOUNDS THROUGHOUT. ABDOMEN IS DISTENDED AND NOTED WITH MILD, DIFFUSE TENDERNESS THROUGHOUT. THERE IS A DRESSING TO RIGHT SIDE. DRESSING IS DRY AND INTACT. BILATERAL LOWER EXTREMITIES ARE NOTED WITH TRACE EDEMA. HE ALSO CONTINUES WITH SCROTAL EDEMA. DRESSING TO SACRUM IS DRY AND INTACT WITH NO SIGNS OF INFECTION NOTED SURROUNDING SITE. THERE IS A HERRERA CATHETER NOTED TO BEDSIDE DRAINAGE. HIS VITALS THIS MORNING ARE 97.9-136- 18-95%NC-113/76. LABS WERE OBTAINED. ABNORMAL LAB VALUES INCLUDE THE FOLLOWING: WBC 14.3, RBC 2.73, HGB 7.8, HCT 23.4, PLT COUNT 524, SODIUM 135, POTASSIUM 3.3 , CARBON DIOXIDE 32.2, CREATININE 0.44, GLUCOSE 155, CALCIUM 7.8, ALK PHOS 165, TOTAL PROTEIN 4.7, ALBUMIN 1.1. A URINE CULTURE IS PENDING. TODAY, WE WILL CONTINUE ANTIBIOTICS AND CURRENT PLAN OF CARE. WE PLAN TO FOLLOW UP WITH AM LABS AND CONTINUE TO MONITOR PATIENT. - Past Medical Family Social History Past Med/Fam/Surg Hx: No changes since H&P Allergies: Allergies Penicillins Allergy (Verified 08/23/17 02:41) Sulfa (Sulfonamide Antibiotics) Allergy (Verified 08/23/17 02:41) - Review of Systems ROS: No change since H&P - Vital Signs and I&O's Vital Signs: Temperature 98.1 F Pulse Rate [Right Brachial] 128 Respiratory Rate 14 Blood Pressure [Left Arm] 107/66 Blood Pressure 126/67 O2 Sat by Pulse Oximetry 93 Intake and Output: Intake & Output 10/01/17 10/02/17 10/03/17 10/04/17 11:59 11:59 11:59 11:59 Intake Total 760 / 760 800 / 800 720 / 720 Output Total 1400 / 1400 500 / 500 950 / 950 Balance -640 / -640 300 / 300 -230 / -230 - Physical Exam Oriented: Normal Eyes: Normal Ear: Normal Nose: Normal Throat: Normal Cardiovascular: Normal, Edema (scrotal). negative: S3, S4, Murmur : Normal Auscultation: Bowel Sounds: Normal Tenderness: Suprapubic, Mild. negative: Rebound, Guarding, Rigidity Skin: Wound (stage 1 sacral ulcer ) Musculoskeletal: Sensory Deficit (paraplegic ) Psychiatric: Normal Mood Description: Calm Affect: Normal Speech Pattern: Clear, Appropriate - Laboratory and Diagnostics Result Diagrams: 10/04/17 04:05 10/04/17 04:05 Labs: 10/01/17 17:05 Urine,Clean Catch Urine Culture - Final Escherichia Coli Laboratory WBC 17.4 X10^3/uL (3.6-10.0) H 10/04/17 04:05 RBC 2.68 X10^6/uL (4.7-6.0) L 10/04/17 04:05 Hgb 7.5 g/dL (13.5-18.0) L 10/04/17 04:05 Hct 22.9 % (42.0-54.0) L 10/04/17 04:05 MCV 85.5 fL (80.0-100.0) 10/04/17 04:05 MCH 27.9 pg (27.0-34.0) 10/04/17 04:05 MCHC 32.6 g/dL (33.0-35.0) L 10/04/17 04:05 RDW 17.5 % (11.6-16.5) H 10/04/17 04:05 Plt Count 611 X10^3/uL (150.0-450.0) H 10/04/17 04:05 Plt Count Comment Increased (ADEQUATE) 10/04/17 04:05 MPV 6.9 fL (7.4-11.0) L 10/04/17 04:05 Neut % (Auto) 83.1 % (42.0-75.0) H 10/04/17 04:05 Lymph % (Auto) 4.7 % (21.0-51.0) L 10/04/17 04:05 [place] % (Auto) 11.7 % (0.0-13.0) 10/04/17 04:05 Eos % (Auto) 0.2 % (0.9-2.9) L 10/04/17 04:05 Baso % (Auto) 0.3 % (0.2-1.0) 10/04/17 04:05 Neut # (Auto) 14.5 x10^3/uL (2.2-4.8) H 10/04/17 04:05 Lymph # (Auto) 0.8 X10^3/uL (1.3-2.9) L 10/04/17 04:05 [place] # (Auto) 2.0 x10^3/uL (0.3-0.8) H 10/04/17 04:05 Eos # (Auto) 0.0 x10^3/uL (0.0-0.2) 10/04/17 04:05 Baso # (Auto) 0.1 X10^3/uL (0.0-0.1) 10/04/17 04:05 Absolute Nucleated RBC 0.2 /100WBC 10/04/17 04:05 Plt Morphology Comment Normal (NORMAL) 10/04/17 04:05 RBC Morphology Abnormal (NORMAL) 10/04/17 04:05 Hypochromasia Slight A 10/04/17 04:05 Anisocytosis Slight A 10/04/17 04:05 Sodium 136 mmol/L (136-145) 10/04/17 04:05 Corrected Sodium 137 mmol/L (136-145) 10/04/17 04:05 Potassium 3.5 mmol/L (3.5-5.1) 10/04/17 04:05 Chloride 99 mmol/L (98-107) 10/04/17 04:05 Carbon Dioxide 35.3 mmol/L (21-32) H 10/04/17 04:05 BUN 8 mg/dL (7-18) 10/04/17 04:05 Creatinine 0.47 mg/dL (0.70-1.30) L 10/04/17 04:05 Est GFR (MDRD) Af Amer > 60 (>60) 10/04/17 04:05 Est GFR (MDRD) Non-Af > 60 (>60) 10/04/17 04:05 Glucose 149 mg/dL (65-99) H 10/04/17 04:05 Calcium 8.0 mg/dL (8.5-10.1) L 10/04/17 04:05 Corrected Calcium 10.3 mg/dL (8.5-10.1) H 10/04/17 04:05 Magnesium 1.5 mg/dL (1.7-2.9) L 10/04/17 04:05 Total Bilirubin 0.20 mg/dL (0.2-1.0) 10/04/17 04:05 AST 25 Units/L (15-37) 10/04/17 04:05 ALT 18 Units/L (12-78) 10/04/17 04:05 Alkaline Phosphatase 181 Units/L (46-116) H 10/04/17 04:05 Total Protein 4.9 g/dL (6.4-8.2) L 10/04/17 04:05 Albumin 1.1 g/dL (3.4-5.0) L 10/04/17 04:05 Globulin 3.8 g/dL (2.5-4.5) 10/04/17 04:05 Albumin/Globulin Ratio 0.3 Ratio (1.1-2.1) L 10/04/17 04:05 Specimen Type Catherized urine 10/01/17 17:06 Urine Color Yellow (YELLOW) 10/01/17 17:06 Urine Appearance Cloudy (CLEAR) 10/01/17 17:06 Urine pH 6.0 (5.0 - 8.0) 10/01/17 17:06 Ur Specific [place] 1.020 (1.000-1.030) 10/01/17 17:06 Urine Protein 2+ (NEGATIVE) 10/01/17 17:06 Urine Glucose (UA) Negative (NEGATIVE) 10/01/17 17:06 Urine Ketones Negative (NEGATIVE) 10/01/17 17:06 Urine Occult Blood 2+ (NEGATIVE) 10/01/17 17:06 Urine Nitrite Positive (NEGATIVE) 10/01/17 17:06 Urine Bilirubin Negative (NEGATIVE) 10/01/17 17:06 Urine Urobilinogen Normal (NORMAL) 10/01/17 17:06 Ur Leukocyte Esterase 3+ (NEGATIVE) 10/01/17 17:06 Urine RBC 0-2 /HPF (NONE SEEN) 10/01/17 17:06 Urine WBC Tntc /HPF (NONE SEEN) 10/01/17 17:06 Ur Squamous Epith Cells Rare /HPF (NEGATIVE) 10/01/17 17:06 Amorphous Sediment Trace /HPF (NEGATIVE) 10/01/17 17:06 Urine Bacteria 4+ /HPF (NEGATIVE) 10/01/17 17:06 Ur Culture Indicated? Yes/culture set up 10/01/17 17:06 Blood Type O POSITIVE 10/03/17 19:48 Antibody Screen Positive 10/03/17 19:48 Crossmatch See Detail 10/03/17 19:48 - Plan (1) Urinary tract infection Status: Acute Qualifiers: Urinary tract infection type: acute cystitis Hematuria presence: without hematuria Qualified Code(s): N30.00 - Acute cystitis without hematuria Plan: cipro 750mg po bid, continue to monitor (2) Shortness of breath Status: Acute Plan: supplemental oxygen, continue to monitor (3) Malignant melanoma, metastatic Status: Chronic Plan: continue home medications, continue to monitor
--- NOTE | 2017-10-04 08:22 | PCM.PROG ---
Progress Note - Progress Note for Day of Date of Exam: 10/03/17 - Subjective Subjective: WAS ADMITTED FOR METASTATIC MELANOMA WITH SHORTNESS OF BREATH, ABDOMINAL PAIN, AND A URINARY TRACT INFECTION. TODAY, HE IS ALERT AND ORIENTED, LYING IN BED ON MORNING ROUNDS. HE CONTINUES WITH GENERALIZED WEAKNESS AND ABDOMINAL PAIN. ON EXAMINATION, HE IS NOTED TO BE TACHYCARDIC WITH HR IN THE 120S-130S. BILATERAL LUNGS ARE NOTED WITH DIMINISHED LUNG SOUNDS THROUGHOUT. ABDOMEN CONTINUES TO BE DISTENDED AND NOTED WITH MILD, DIFFUSE TENDERNESS THROUGHOUT. THERE IS A DRESSING TO RIGHT SIDE. DRESSING IS DRY AND INTACT. BILATERAL LOWER EXTREMITIES ARE NOTED WITH TRACE EDEMA. HE ALSO CONTINUES WITH SCROTAL EDEMA. DRESSING TO SACRUM IS DRY AND INTACT WITH NO SIGNS OF INFECTION NOTED SURROUNDING SITE. THERE IS A HERRERA CATHETER NOTED TO BEDSIDE DRAINAGE. HIS VITALS THIS MORNING ARE 97.9-132-20-93%-121/65. LABS WERE OBTAINED. ABNORMAL LAB VALUES INCLUDE THE FOLLOWING: WBC 11.6, RBC 2.47, HGB 6.9 , HCT 20.8, PLT COUNT 490, POTASSIUM 2.5, CARBON DIOXIDE 33.7, CREATININE 0.56, GLUCOSE 183, CALCIUM 7.4, MAGNESIUM 1.3, ALK PHOS 159, TOTAL PROTEIN 4.4, ALBUMIN 1.0. A URINE CULTURE REPORTS GROWTH OF E.COLI. IT IS RESISTANT TO THE CIPRO THAT HE IS CURRENTLY ON. TODAY, WE WILL DISCONTINUE THE CIPRO AND START INVANZ 1GM IV DAILY. WE DISCUSSED WITH PATIENT THE NEED FOR A BLOOD TRANSFUSION. PATIENT IS UNSURE TO WHETHER OR NOT HE WANTS TRANSFUSION AT THIS TIME. HE IS GOING TO DISCUSS WITH FAMILY AND LET US KNOW. OTHERWISE, WE PLAN TO FOLLOW UP WITH AM LABS AND CONTINUE TO MONITOR PATIENT. - Past Medical Family Social History Past Med/Fam/Surg Hx: No changes since H&P Allergies: Allergies Penicillins Allergy (Verified 08/23/17 02:41) Sulfa (Sulfonamide Antibiotics) Allergy (Verified 08/23/17 02:41) - Review of Systems ROS: No change since H&P - Vital Signs and I&O's Vital Signs: Temperature 98.1 F Pulse Rate [Right Brachial] 128 Respiratory Rate 14 Blood Pressure [Left Arm] 107/66 Blood Pressure 126/67 O2 Sat by Pulse Oximetry 93 Intake and Output: Intake & Output 08/2510/02/17 10/03/17 10/04/17 11:59 11:59 11:59 11:59 Intake Total 760 / 760 800 / 800 720 / 720 Output Total 1400 / 1400 500 / 500 950 / 950 Balance -640 / -640 300 / 300 -230 / -230 - Physical Exam Oriented: Normal Eyes: Normal Ear: Normal Nose: Normal Throat: Normal Respiratory: Generalized, Diminished Cardiovascular: Normal, Edema (scrotal). negative: S3, S4, Murmur : Normal Auscultation: Bowel Sounds: Normal Palpation: Normal Tenderness: Suprapubic, Mild. negative: Rebound, Guarding, Rigidity Skin: Wound (stage 1 sacral ulcer ) Musculoskeletal: Sensory Deficit (paraplegic ) Psychiatric: Normal Mood Description: Calm Affect: Normal Speech Pattern: Clear, Appropriate - Laboratory and Diagnostics Result Diagrams: 10/04/17 04:05 10/04/17 04:05 Labs: 10/01/17 17:05 Urine,Clean Catch Urine Culture - Final Escherichia Coli Laboratory WBC 17.4 X10^3/uL (3.6-10.0) H 10/04/17 04:05 RBC 2.68 X10^6/uL (4.7-6.0) L 10/04/17 04:05 Hgb 7.5 g/dL (13.5-18.0) L 10/04/17 04:05 Hct 22.9 % (42.0-54.0) L 10/04/17 04:05 MCV 85.5 fL (80.0-100.0) 10/04/17 04:05 MCH 27.9 pg (27.0-34.0) 10/04/17 04:05 MCHC 32.6 g/dL (33.0-35.0) L 10/04/17 04:05 RDW 17.5 % (11.6-16.5) H 10/04/17 04:05 Plt Count 611 X10^3/uL (150.0-450.0) H 10/04/17 04:05 Plt Count Comment Increased (ADEQUATE) 10/04/17 04:05 MPV 6.9 fL (7.4-11.0) L 10/04/17 04:05 Neut % (Auto) 83.1 % (42.0-75.0) H 10/04/17 04:05 Lymph % (Auto) 4.7 % (21.0-51.0) L 10/04/17 04:05 [place] % (Auto) 11.7 % (0.0-13.0) 10/04/17 04:05 Eos % (Auto) 0.2 % (0.9-2.9) L 10/04/17 04:05 Baso % (Auto) 0.3 % (0.2-1.0) 10/04/17 04:05 Neut # (Auto) 14.5 x10^3/uL (2.2-4.8) H 10/04/17 04:05 Lymph # (Auto) 0.8 X10^3/uL (1.3-2.9) L 10/04/17 04:05 [place] # (Auto) 2.0 x10^3/uL (0.3-0.8) H 10/04/17 04:05 Eos # (Auto) 0.0 x10^3/uL (0.0-0.2) 10/04/17 04:05 Baso # (Auto) 0.1 X10^3/uL (0.0-0.1) 10/04/17 04:05 Absolute Nucleated RBC 0.2 /100WBC 10/04/17 04:05 Plt Morphology Comment Normal (NORMAL) 10/04/17 04:05 RBC Morphology Abnormal (NORMAL) 10/04/17 04:05 Hypochromasia Slight A 10/04/17 04:05 Anisocytosis Slight A 10/04/17 04:05 Sodium 136 mmol/L (136-145) 10/04/17 04:05 Corrected Sodium 137 mmol/L (136-145) 10/04/17 04:05 Potassium 3.5 mmol/L (3.5-5.1) 10/04/17 04:05 Chloride 99 mmol/L (98-107) 10/04/17 04:05 Carbon Dioxide 35.3 mmol/L (21-32) H 10/04/17 04:05 BUN 8 mg/dL (7-18) 10/04/17 04:05 Creatinine 0.47 mg/dL (0.70-1.30) L 10/04/17 04:05 Est GFR (MDRD) Af Amer > 60 (>60) 10/04/17 04:05 Est GFR (MDRD) Non-Af > 60 (>60) 10/04/17 04:05 Glucose 149 mg/dL (65-99) H 10/04/17 04:05 Calcium 8.0 mg/dL (8.5-10.1) L 10/04/17 04:05 Corrected Calcium 10.3 mg/dL (8.5-10.1) H 10/04/17 04:05 Magnesium 1.5 mg/dL (1.7-2.9) L 10/04/17 04:05 Total Bilirubin 0.20 mg/dL (0.2-1.0) 10/04/17 04:05 AST 25 Units/L (15-37) 10/04/17 04:05 ALT 18 Units/L (12-78) 10/04/17 04:05 Alkaline Phosphatase 181 Units/L (46-116) H 10/04/17 04:05 Total Protein 4.9 g/dL (6.4-8.2) L 10/04/17 04:05 Albumin 1.1 g/dL (3.4-5.0) L 10/04/17 04:05 Globulin 3.8 g/dL (2.5-4.5) 10/04/17 04:05 Albumin/Globulin Ratio 0.3 Ratio (1.1-2.1) L 10/04/17 04:05 Specimen Type Catherized urine 10/01/17 17:06 Urine Color Yellow (YELLOW) 10/01/17 17:06 Urine Appearance Cloudy (CLEAR) 10/01/17 17:06 Urine pH 6.0 (5.0 - 8.0) 10/01/17 17:06 Ur Specific [place] 1.020 (1.000-1.030) 10/01/17 17:06 Urine Protein 2+ (NEGATIVE) 10/01/17 17:06 Urine Glucose (UA) Negative (NEGATIVE) 10/01/17 17:06 Urine Ketones Negative (NEGATIVE) 10/01/17 17:06 Urine Occult Blood 2+ (NEGATIVE) 10/01/17 17:06 Urine Nitrite Positive (NEGATIVE) 10/01/17 17:06 Urine Bilirubin Negative (NEGATIVE) 10/01/17 17:06 Urine Urobilinogen Normal (NORMAL) 10/01/17 17:06 Ur Leukocyte Esterase 3+ (NEGATIVE) 10/01/17 17:06 Urine RBC 0-2 /HPF (NONE SEEN) 10/01/17 17:06 Urine WBC Tntc /HPF (NONE SEEN) 10/01/17 17:06 Ur Squamous Epith Cells Rare /HPF (NEGATIVE) 10/01/17 17:06 Amorphous Sediment Trace /HPF (NEGATIVE) 10/01/17 17:06 Urine Bacteria 4+ /HPF (NEGATIVE) 10/01/17 17:06 Ur Culture Indicated? Yes/culture set up 10/01/17 17:06 Blood Type O POSITIVE 10/03/17 19:48 Antibody Screen Positive 10/03/17 19:48 Crossmatch See Detail 10/03/17 19:48 - Plan (1) Urinary tract infection Status: Acute Qualifiers: Urinary tract infection type: acute cystitis Hematuria presence: without hematuria Qualified Code(s): N30.00 - Acute cystitis without hematuria Plan: cipro 750mg po bid, continue to monitor (2) Shortness of breath Status: Acute Plan: supplemental oxygen, continue to monitor (3) Anemia Status: Acute Qualifiers: Anemia type: iron deficiency Iron deficiency anemia type: unspecified iron deficiency Qualified Code(s): D50.9 - Iron deficiency anemia, unspecified Plan: MONITOR H&H, TRANSFUSE TWO UNITS PACKED RED BLOOD CELLS IF PATIENT CONSENTS. (4) Malignant melanoma, metastatic Status: Chronic Plan: continue home medications, continue to monitor
[2017-10-04] MEDS ORDERED: NS 250 ML IV 250 ML IV ONE (08:31)
[2017-10-04] MEDS: COLACE CAP 100 MG PO SCH ×2 (08:40→20:42)
[2017-10-04] MEDS: ELIQUIS PO SCH ×2 (08:40→20:43)
[2017-10-04] MEDS: INVANZ INJ 1 GM VIAL 1 GM in NS 100 ML IV + SPIKE MINIBAG* 100 ML IV SCH (08:40)
[2017-10-04] MEDS: CHECK PATCH XX SCH ×2 (08:40→20:39)
[2017-10-04] MEDS: ZANTAC PO SCH ×2 (08:40→20:45)
[2017-10-04] MEDS: REGLAN TAB 10 MG PO SCH ×4 (08:40→20:45)
[2017-10-04] MEDS: K-DUR TAB 20 MEQ PO SCH ×2 (08:40→20:44)
[2017-10-04] MEDS: PROTONIX TAB 40 MG PO SCH (08:40)
[2017-10-04] MEDS: DURAGESIC 100 mcg/HR PATCH TD SCH (08:40)
[2017-10-04] MEDS: ELAVIL PO SCH ×2 (20:41→20:42)
[2017-10-04] MEDS: MIRALAX POWDER (1 DOSE 17 G) PO SCH (20:44)
[2017-10-04] MEDS: XANAX PO PRN (20:49)
[2017-10-05] MEDS: XANAX PO PRN ×2 (00:56→09:07)
[2017-10-05] MEDS ORDERED: DILAUDID PO ONE (08:59)
[2017-10-05] MEDS: DILAUDID PO PRN (09:09)
[2017-10-05] MEDS: INVANZ INJ 1 GM VIAL 1 GM in NS 100 ML IV + SPIKE MINIBAG* 100 ML IV SCH (09:14)
[2017-10-05] MEDS ORDERED: VERSED 100 MG in NS 100 ML IV 80 ML IV PRN (09:22)
[2017-10-05] MEDS ORDERED: MORPHINE SULFATE PCA 30 MG IVP PRN (09:22)
--- NOTE | 2017-10-05 10:36 | PCM.PROG ---
Progress Note - Progress Note for Day of Date of Exam: 10/04/17 - Subjective Subjective: WAS ADMITTED FOR METASTATIC MELANOMA WITH SHORTNESS OF BREATH, ABDOMINAL PAIN, AND A URINARY TRACT INFECTION. DUE TO ANXIETY RELATED TO DISEASE PROCESS, PATIENT HAS BEEN UNCERTAIN TO WHETHER OR NOT TO COMPLY WITH SUGGESTED COURSE OF TREATMENT FOR UTI AND ANEMIA. HE DID EVENTUALLY AGREE TO BLOOD TRANSUSION, HOWEVER, HE IS POSITIVE FOR ANTIBODIES, AND BLOOD WILL NOT BE AVAILABLE UNTIL TOMORROW. TODAY, HE IS LYING IN BED WITH EYES CLOSED ON MORNING ROUNDS. HE IS DIFFICULT TO AROUSE TODAY, BUT DOES RESPOND TO PAINFUL STIMULI. HE CONTINUES WITH GENERALIZED WEAKNESS. ON EXAMINATION, HE CONTINUES TO BE TACHYCARDIC WITH HR IN THE 120S-130S. BILATERAL LUNGS ARE NOTED WITH DIMINISHED LUNG SOUNDS THROUGHOUT. ABDOMEN CONTINUES TO BE DISTENDED AND NOTED WITH MILD, DIFFUSE TENDERNESS THROUGHOUT. THERE IS A DRESSING TO RIGHT SIDE. DRESSING IS DRY AND INTACT. BILATERAL LOWER EXTREMITIES ARE NOTED WITH INCREASED EDEMA TODAY. HE ALSO CONTINUES WITH SCROTAL EDEMA. DRESSING TO SACRUM IS DRY AND INTACT WITH NO SIGNS OF INFECTION NOTED SURROUNDING SITE. THERE IS A HERRERA CATHETER NOTED TO BEDSIDE DRAINAGE. HIS VITALS THIS MORNING ARE 98.6-124- 20-93%-166/57. LABS WERE OBTAINED. ABNORMAL LAB VALUES INCLUDE THE FOLLOWING: WBC 17.4, RBC 2.68, HGB 7.5, HCT 22.9, POTASSIUM 2.5, CARBON DIOXIDE 33.7, CREATININE 0.56, GLUCOSE 183, CALCIUM 7.4, MAGNESIUM 1.3, ALK PHOS 159, TOTAL PROTEIN 4.4, ALBUMIN 1.0. A URINE CULTURE REPORTS GROWTH OF E.COLI. IT IS RESISTANT TO THE CIPRO THAT HE IS CURRENTLY ON. TODAY, WE WILL CONTINUE WITH IV ANTIBIOTICS AND CURRENT PLAN OF CARE. OTHERWISE, WE PLAN TO FOLLOW UP WITH AM LABS AND CONTINUE TO MONITOR PATIENT. - Past Medical Family Social History Past Med/Fam/Surg Hx: No changes since H&P Allergies: Allergies Penicillins Allergy (Verified 08/23/17 02:41) Sulfa (Sulfonamide Antibiotics) Allergy (Verified 08/23/17 02:41) - Review of Systems ROS: No change since H&P - Vital Signs and I&O's Vital Signs: Temperature 97.6 F Pulse Rate [Right Brachial] 135 Respiratory Rate 24 Blood Pressure [Left Arm] 120/77 Blood Pressure 126/67 O2 Sat by Pulse Oximetry 98 Intake and Output: Intake & Output 10/02/17 10/03/17 10/04/17 10/05/17 11:59 11:59 11:59 11:59 Intake Total 760 / 760 800 / 800 720 / 720 490 / 490 Output Total 1400 / 1400 500 / 500 950 / 950 720 / 720 Balance -640 / -640 300 / 300 -230 / -230 -230 / -230 - Physical Exam Oriented: Normal Eyes: Normal Ear: Normal Nose: Normal Throat: Normal Respiratory: Generalized, Diminished Cardiovascular: Normal, Edema (scrotal). negative: S3, S4, Murmur : Normal Auscultation: Bowel Sounds: Normal Tenderness: Suprapubic, Mild. negative: Rebound, Guarding, Rigidity Skin: Wound (stage 1 sacral ulcer ) Musculoskeletal: Sensory Deficit (paraplegic ) Psychiatric: Normal Mood Description: Calm Affect: Normal Speech Pattern: Appropriate - Laboratory and Diagnostics Result Diagrams: 10/04/17 04:05 10/04/17 04:05 Labs: 10/01/17 17:05 Urine,Clean Catch Urine Culture - Final Escherichia Coli Laboratory WBC 17.4 X10^3/uL (3.6-10.0) H 10/04/17 04:05 RBC 2.68 X10^6/uL (4.7-6.0) L 10/04/17 04:05 Hgb 7.5 g/dL (13.5-18.0) L 10/04/17 04:05 Hct 22.9 % (42.0-54.0) L 10/04/17 04:05 MCV 85.5 fL (80.0-100.0) 10/04/17 04:05 MCH 27.9 pg (27.0-34.0) 10/04/17 04:05 MCHC 32.6 g/dL (33.0-35.0) L 10/04/17 04:05 RDW 17.5 % (11.6-16.5) H 10/04/17 04:05 Plt Count 611 X10^3/uL (150.0-450.0) H 10/04/17 04:05 Plt Count Comment Increased (ADEQUATE) 10/04/17 04:05 MPV 6.9 fL (7.4-11.0) L 10/04/17 04:05 Neut % (Auto) 83.1 % (42.0-75.0) H 10/04/17 04:05 Lymph % (Auto) 4.7 % (21.0-51.0) L 10/04/17 04:05 [place] % (Auto) 11.7 % (0.0-13.0) 10/04/17 04:05 Eos % (Auto) 0.2 % (0.9-2.9) L 10/04/17 04:05 Baso % (Auto) 0.3 % (0.2-1.0) 10/04/17 04:05 Neut # (Auto) 14.5 x10^3/uL (2.2-4.8) H 10/04/17 04:05 Lymph # (Auto) 0.8 X10^3/uL (1.3-2.9) L 10/04/17 04:05 [place] # (Auto) 2.0 x10^3/uL (0.3-0.8) H 10/04/17 04:05 Eos # (Auto) 0.0 x10^3/uL (0.0-0.2) 10/04/17 04:05 Baso # (Auto) 0.1 X10^3/uL (0.0-0.1) 10/04/17 04:05 Absolute Nucleated RBC 0.2 /100WBC 10/04/17 04:05 Plt Morphology Comment Normal (NORMAL) 10/04/17 04:05 RBC Morphology Abnormal (NORMAL) 10/04/17 04:05 Hypochromasia Slight A 10/04/17 04:05 Anisocytosis Slight A 10/04/17 04:05 Sodium 136 mmol/L (136-145) 10/04/17 04:05 Corrected Sodium 137 mmol/L (136-145) 10/04/17 04:05 Potassium 3.5 mmol/L (3.5-5.1) 10/04/17 04:05 Chloride 99 mmol/L (98-107) 10/04/17 04:05 Carbon Dioxide 35.3 mmol/L (21-32) H 10/04/17 04:05 BUN 8 mg/dL (7-18) 10/04/17 04:05 Creatinine 0.47 mg/dL (0.70-1.30) L 10/04/17 04:05 Est GFR (MDRD) Af Amer > 60 (>60) 10/04/17 04:05 Est GFR (MDRD) Non-Af > 60 (>60) 10/04/17 04:05 Glucose 149 mg/dL (65-99) H 10/04/17 04:05 Calcium 8.0 mg/dL (8.5-10.1) L 10/04/17 04:05 Corrected Calcium 10.3 mg/dL (8.5-10.1) H 10/04/17 04:05 Magnesium 1.5 mg/dL (1.7-2.9) L 10/04/17 04:05 Total Bilirubin 0.20 mg/dL (0.2-1.0) 10/04/17 04:05 AST 25 Units/L (15-37) 10/04/17 04:05 ALT 18 Units/L (12-78) 10/04/17 04:05 Alkaline Phosphatase 181 Units/L (46-116) H 10/04/17 04:05 Total Protein 4.9 g/dL (6.4-8.2) L 10/04/17 04:05 Albumin 1.1 g/dL (3.4-5.0) L 10/04/17 04:05 Globulin 3.8 g/dL (2.5-4.5) 10/04/17 04:05 Albumin/Globulin Ratio 0.3 Ratio (1.1-2.1) L 10/04/17 04:05 Specimen Type Catherized urine 10/01/17 17:06 Urine Color Yellow (YELLOW) 10/01/17 17:06 Urine Appearance Cloudy (CLEAR) 10/01/17 17:06 Urine pH 6.0 (5.0 - 8.0) 10/01/17 17:06 Ur Specific [place] 1.020 (1.000-1.030) 10/01/17 17:06 Urine Protein 2+ (NEGATIVE) 10/01/17 17:06 Urine Glucose (UA) Negative (NEGATIVE) 10/01/17 17:06 Urine Ketones Negative (NEGATIVE) 10/01/17 17:06 Urine Occult Blood 2+ (NEGATIVE) 10/01/17 17:06 Urine Nitrite Positive (NEGATIVE) 10/01/17 17:06 Urine Bilirubin Negative (NEGATIVE) 10/01/17 17:06 Urine Urobilinogen Normal (NORMAL) 10/01/17 17:06 Ur Leukocyte Esterase 3+ (NEGATIVE) 10/01/17 17:06 Urine RBC 0-2 /HPF (NONE SEEN) 10/01/17 17:06 Urine WBC Tntc /HPF (NONE SEEN) 10/01/17 17:06 Ur Squamous Epith Cells Rare /HPF (NEGATIVE) 10/01/17 17:06 Amorphous Sediment Trace /HPF (NEGATIVE) 10/01/17 17:06 Urine Bacteria 4+ /HPF (NEGATIVE) 10/01/17 17:06 Ur Culture Indicated? Yes/culture set up 10/01/17 17:06 Blood Type O POSITIVE 10/03/17 19:48 Antibody Screen Positive 10/03/17 19:48 Crossmatch See Detail 10/03/17 19:48 - Plan (1) Urinary tract infection Status: Acute Qualifiers: Urinary tract infection type: acute cystitis Hematuria presence: without hematuria Qualified Code(s): N30.00 - Acute cystitis without hematuria Plan: cipro 750mg po bid, continue to monitor (2) Shortness of breath Status: Acute Plan: supplemental oxygen, continue to monitor (3) Anemia Status: Acute Qualifiers: Anemia type: iron deficiency Iron deficiency anemia type: unspecified iron deficiency Qualified Code(s): D50.9 - Iron deficiency anemia, unspecified Plan: MONITOR H&H, TRANSFUSE TWO UNITS PACKED RED BLOOD CELLS IF PATIENT CONSENTS. (4) Malignant melanoma, metastatic Status: Chronic Plan: continue home medications, continue to monitor
[2017-10-05] MEDS: NEURONTIN CAP 300 MG PO SCH (11:02)
[2017-10-05] MEDS: SOMA TAB 350 MG PO SCH (11:02)
[2017-10-05] MEDS: LASIX PO SCH (11:03)
[2017-10-05] MEDS: COLACE CAP 100 MG PO SCH (11:03)
[2017-10-05] MEDS: ELIQUIS PO SCH (11:03)
[2017-10-05] MEDS: CHECK PATCH XX SCH ×2 (11:03→21:08)
[2017-10-05] MEDS: K-DUR TAB 20 MEQ PO SCH (11:15)
[2017-10-05] MEDS: REGLAN TAB 10 MG PO SCH (11:16)
[2017-10-05] MEDS: PROTONIX TAB 40 MG PO SCH (11:16)
[2017-10-05] MEDS: ZANTAC PO SCH (11:16)
[2017-10-05] MEDS: MORPHINE SULFATE INJ 2 MG INJ IVP PRN ×2 (15:04→21:49)
[2017-10-05] MEDS: ATIVAN INJ 2 MG VIAL IVP PRN ×3 (18:40→23:47)
[2017-10-05] MEDS ORDERED: ZOFRAN INJ 4 MG VIAL IVP PRN (22:50)
[2017-10-06] MEDS: MORPHINE SULFATE INJ 2 MG INJ IVP PRN ×3 (01:11→08:00)
[2017-10-06] MEDS: ATIVAN INJ 2 MG VIAL IVP PRN ×3 (02:45→08:00)
[2017-10-06] MEDS ORDERED: VERSED 100 MG in NS 100 ML IV 80 ML IV PRN (09:32)
[2017-10-06] MEDS ORDERED: DILAUDID PCA 60 MG IVP PRN (09:32)
[2017-10-06] MEDS: CHECK PATCH XX SCH (09:51)
[2017-10-07] MEDS: CHECK PATCH XX SCH ×2 (07:37→08:30)
[2017-10-07] MEDS: DURAGESIC 100 mcg/HR PATCH TD SCH (08:54)
[2017-10-07 12:45] VITALS: BP 57/21
--- NOTE | 2017-10-10 20:42 | PCM.PROG ---
Progress Note - Progress Note for Day of Date of Exam: 10/05/17 - Subjective Subjective: WAS ADMITTED FOR METASTATIC MELANOMA WITH SHORTNESS OF BREATH, ABDOMINAL PAIN, AND A URINARY TRACT INFECTION. HE WAS NOTED WITH ANEMIA WITH LEVELS OF 4.9 WHICH REQUIRES A BLOOD TRANSFUSION, HOWEVER, BLOOD IS NOT AVAILABLE AT THIS TIME DUE TO THE PRESENCE OF ANTIBIODIES. STAFF REPORTS THAT PATIENTS OXYGEN SATURATIONS FELL INTO THE 50S ON ROOM AIR YESTERDAY AFTERNOON. FAMILY DID SIGN A DNR. TODAY, HE IS LYING IN BED WITH EYES CLOSED ON MORNING ROUNDS. HE IS DIFFICULT TO AROUSE TODAY. FAMILY REPORTS THAT HE APPEARED TO BE IN PAIN AND WAS MOANING THROUGHOUT THE NIGHT. ON EXAMINATION, HE CONTINUES TO BE TACHYCARDIC WITH HR IN THE 120S-130S. HE IS NOTED WITH ELAINE HERNANDEZ BREATHING. BILATERAL LUNGS ARE NOTED WITH DIMINISHED LUNG SOUNDS THROUGHOUT. ABDOMEN CONTINUES TO BE DISTENDED. THERE IS A DRESSING TO RIGHT SIDE. DRESSING IS DRY AND INTACT. BILATERAL LOWER EXTREMITIES ARE NOTED WITH INCREASED EDEMA TODAY. HE ALSO CONTINUES WITH SCROTAL EDEMA. DRESSING TO SACRUM IS DRY AND INTACT WITH NO SIGNS OF INFECTION NOTED SURROUNDING SITE. THERE IS A HERRERA CATHETER NOTED TO BEDSIDE DRAINAGE. HIS VITALS THIS MORNING ARE 97.4-134-16-98%- 101/62. FAMILY REFUSED FOR PATIENT TO HAVE HIS LABS DRAWN THIS MORNING. WE DISCUSSED WITH PATIENTS FAMILY THEIR WISHES FOR END OF LIFE CARE. THEY WISH FOR PATIENT TO REMAIN COMFORTABLE AT THIS TIME AND TO HOLD ALL OTHER MEDICATIONS AT THIS TIME. WE ARE IN AGREEMENT WITH PLAN. TODAY, WE WILL START MORPHINE AND VERSED DRIPS. OTHERWISE, WE WILL CONTINUE TO MONITOR PATIENT. - Past Medical Family Social History Past Med/Fam/Surg Hx: No changes since H&P Allergies: Allergies Penicillins Allergy (Verified 08/23/17 02:41) Sulfa (Sulfonamide Antibiotics) Allergy (Verified 08/23/17 02:41) - Review of Systems ROS: No change since H&P - Vital Signs and I&O's Vital Signs: Temperature 98 F Pulse Rate [Left Brachial] 104 Pulse Rate [Right Brachial] 133 Respiratory Rate 6 Blood Pressure [Left Arm] 57/21 Blood Pressure 126/67 O2 Sat by Pulse Oximetry 96 - Physical Exam Oriented: Unable to test Eyes: Normal Ear: Normal Nose: Normal Throat: Normal Respiratory: Generalized, Diminished Cardiovascular: Normal, Edema (scrotal). negative: S3, S4, Murmur : Normal Auscultation: Bowel Sounds: Normal Palpation: Normal Tenderness: Suprapubic, Mild. negative: Rebound, Guarding, Rigidity Skin: Wound (stage 1 sacral ulcer ) Musculoskeletal: Sensory Deficit (paraplegic ) Psychiatric: Normal Mood Description: Calm Affect: Normal Speech Pattern: Appropriate - Laboratory and Diagnostics Result Diagrams: 10/04/17 04:05 10/04/17 04:05 Labs: 10/01/17 17:05 Urine,Clean Catch Urine Culture - Final Escherichia Coli Laboratory WBC 17.4 X10^3/uL (3.6-10.0) H 10/04/17 04:05 RBC 2.68 X10^6/uL (4.7-6.0) L 10/04/17 04:05 Hgb 7.5 g/dL (13.5-18.0) L 10/04/17 04:05 Hct 22.9 % (42.0-54.0) L 10/04/17 04:05 MCV 85.5 fL (80.0-100.0) 10/04/17 04:05 MCH 27.9 pg (27.0-34.0) 10/04/17 04:05 MCHC 32.6 g/dL (33.0-35.0) L 10/04/17 04:05 RDW 17.5 % (11.6-16.5) H 10/04/17 04:05 Plt Count 611 X10^3/uL (150.0-450.0) H 10/04/17 04:05 Plt Count Comment Increased (ADEQUATE) 10/04/17 04:05 MPV 6.9 fL (7.4-11.0) L 10/04/17 04:05 Neut % (Auto) 83.1 % (42.0-75.0) H 10/04/17 04:05 Lymph % (Auto) 4.7 % (21.0-51.0) L 10/04/17 04:05 [place] % (Auto) 11.7 % (0.0-13.0) 10/04/17 04:05 Eos % (Auto) 0.2 % (0.9-2.9) L 10/04/17 04:05 Baso % (Auto) 0.3 % (0.2-1.0) 10/04/17 04:05 Neut # (Auto) 14.5 x10^3/uL (2.2-4.8) H 10/04/17 04:05 Lymph # (Auto) 0.8 X10^3/uL (1.3-2.9) L 10/04/17 04:05 [place] # (Auto) 2.0 x10^3/uL (0.3-0.8) H 10/04/17 04:05 Eos # (Auto) 0.0 x10^3/uL (0.0-0.2) 10/04/17 04:05 Baso # (Auto) 0.1 X10^3/uL (0.0-0.1) 10/04/17 04:05 Absolute Nucleated RBC 0.2 /100WBC 10/04/17 04:05 Plt Morphology Comment Normal (NORMAL) 10/04/17 04:05 RBC Morphology Abnormal (NORMAL) 10/04/17 04:05 Hypochromasia Slight A 10/04/17 04:05 Anisocytosis Slight A 10/04/17 04:05 Sodium 136 mmol/L (136-145) 10/04/17 04:05 Corrected Sodium 137 mmol/L (136-145) 10/04/17 04:05 Potassium 3.5 mmol/L (3.5-5.1) 10/04/17 04:05 Chloride 99 mmol/L (98-107) 10/04/17 04:05 Carbon Dioxide 35.3 mmol/L (21-32) H 10/04/17 04:05 BUN 8 mg/dL (7-18) 10/04/17 04:05 Creatinine 0.47 mg/dL (0.70-1.30) L 10/04/17 04:05 Est GFR (MDRD) Af Amer > 60 (>60) 10/04/17 04:05 Est GFR (MDRD) Non-Af > 60 (>60) 10/04/17 04:05 Glucose 149 mg/dL (65-99) H 10/04/17 04:05 Calcium 8.0 mg/dL (8.5-10.1) L 10/04/17 04:05 Corrected Calcium 10.3 mg/dL (8.5-10.1) H 10/04/17 04:05 Magnesium 1.5 mg/dL (1.7-2.9) L 10/04/17 04:05 Total Bilirubin 0.20 mg/dL (0.2-1.0) 10/04/17 04:05 AST 25 Units/L (15-37) 10/04/17 04:05 ALT 18 Units/L (12-78) 10/04/17 04:05 Alkaline Phosphatase 181 Units/L (46-116) H 10/04/17 04:05 Total Protein 4.9 g/dL (6.4-8.2) L 10/04/17 04:05 Albumin 1.1 g/dL (3.4-5.0) L 10/04/17 04:05 Globulin 3.8 g/dL (2.5-4.5) 10/04/17 04:05 Albumin/Globulin Ratio 0.3 Ratio (1.1-2.1) L 10/04/17 04:05 Specimen Type Catherized urine 10/01/17 17:06 Urine Color Yellow (YELLOW) 10/01/17 17:06 Urine Appearance Cloudy (CLEAR) 10/01/17 17:06 Urine pH 6.0 (5.0 - 8.0) 10/01/17 17:06 Ur Specific [place] 1.020 (1.000-1.030) 10/01/17 17:06 Urine Protein 2+ (NEGATIVE) 10/01/17 17:06 Urine Glucose (UA) Negative (NEGATIVE) 10/01/17 17:06 Urine Ketones Negative (NEGATIVE) 10/01/17 17:06 Urine Occult Blood 2+ (NEGATIVE) 10/01/17 17:06 Urine Nitrite Positive (NEGATIVE) 10/01/17 17:06 Urine Bilirubin Negative (NEGATIVE) 10/01/17 17:06 Urine Urobilinogen Normal (NORMAL) 10/01/17 17:06 Ur Leukocyte Esterase 3+ (NEGATIVE) 10/01/17 17:06 Urine RBC 0-2 /HPF (NONE SEEN) 10/01/17 17:06 Urine WBC Tntc /HPF (NONE SEEN) 10/01/17 17:06 Ur Squamous Epith Cells Rare /HPF (NEGATIVE) 10/01/17 17:06 Amorphous Sediment Trace /HPF (NEGATIVE) 08/25/18 17:06 Urine Bacteria 4+ /HPF (NEGATIVE) 10/01/17 17:06 Ur Culture Indicated? Yes/culture set up 10/01/17 17:06 Blood Type O POSITIVE 10/03/17 19:48 Antibody Screen Positive 10/03/17 19:48 Antibody Identification Anti-Fya Anti-Jka 10/03/17 19:48 Antibody Identification Anti-Fya Anti-Jka 10/03/17 19:48 Crossmatch See Detail 10/03/17 19:48 - Plan (1) Palliative care status Status: Acute Plan: MORPHINE AND VERSED DRIPS, CONTINUE TO MONITOR (2) Urinary tract infection Status: Acute Qualifiers: Urinary tract infection type: acute cystitis Hematuria presence: without hematuria Qualified Code(s): N30.00 - Acute cystitis without hematuria Plan: cipro 750mg po bid, continue to monitor (3) Shortness of breath Status: Acute Plan: supplemental oxygen, continue to monitor (4) Anemia Status: Acute Qualifiers: Anemia type: iron deficiency Iron deficiency anemia type: unspecified iron deficiency Qualified Code(s): D50.9 - Iron deficiency anemia, unspecified Plan: MONITOR H&H, TRANSFUSE TWO UNITS PACKED RED BLOOD CELLS IF PATIENT CONSENTS. (5) Malignant melanoma, metastatic Status: Chronic Plan: continue home medications, continue to monitor
--- NOTE | 2017-10-10 20:49 | PCM.PROG ---
Progress Note - Progress Note for Day of Date of Exam: 10/06/17 - Subjective Subjective: WAS ADMITTED FOR METASTATIC MELANOMA WITH SHORTNESS OF BREATH, ABDOMINAL PAIN, AND A URINARY TRACT INFECTION. WE INITIATED PALLIATIVE CARE TREATMENT YESTERDAY. TODAY, HE IS LYING IN BED WITH EYES CLOSED ON MORNING ROUNDS. HE APPEARS TO BE RESTING PEACEFULLY AND WITHOUT DISTRESS. THROUGHOUT THE NIGHT, FAMILY REQUEST THAT MORPHINE BE CHANGED TO DILAUDID, PATIENT RESTS BETTER WITH IT. ON EXAMINATION, HE CONTINUES TO BE TACHYCARDIC WITH HR IN THE 120S-130S. HE CONTINUES WITH ELAINE HERNANDEZ BREATHING. BILATERAL LUNGS ARE NOTED WITH DIMINISHED LUNG SOUNDS THROUGHOUT. ABDOMEN CONTINUES TO BE DISTENDED. THERE IS A DRESSING TO RIGHT SIDE. DRESSING IS DRY AND INTACT. BILATERAL LOWER EXTREMITIES ARE NOTED WITH INCREASED EDEMA TODAY. HE ALSO CONTINUES WITH SCROTAL EDEMA. DRESSING TO SACRUM IS DRY AND INTACT WITH NO SIGNS OF INFECTION NOTED SURROUNDING SITE. THERE IS A HERRERA CATHETER NOTED TO BEDSIDE DRAINAGE. HIS VITALS THIS MORNING ARE 97.6-487-95-100%-114/74. TODAY, WE WILL CONTINUE WITH DILAUDID AND VERSED DRIPS. OTHERWISE, WE WILL CONTINUE TO MONITOR PATIENT. - Past Medical Family Social History Past Med/Fam/Surg Hx: No changes since H&P Allergies: Allergies Penicillins Allergy (Verified 08/23/17 02:41) Sulfa (Sulfonamide Antibiotics) Allergy (Verified 08/23/17 02:41) - Review of Systems ROS: No change since H&P - Vital Signs and I&O's Vital Signs: Temperature 98 F Pulse Rate [Left Brachial] 104 Pulse Rate [Right Brachial] 133 Respiratory Rate 6 Blood Pressure [Left Arm] 57/21 Blood Pressure 126/67 O2 Sat by Pulse Oximetry 96 - Physical Exam Oriented: Unable to test Eyes: Normal Ear: Normal Nose: Normal Throat: Normal Respiratory: Generalized, Diminished Cardiovascular: Normal, Edema (scrotal). negative: S3, S4, Murmur : Normal Auscultation: Bowel Sounds: Normal Palpation: Normal Tenderness: Suprapubic, Mild. negative: Rebound, Guarding, Rigidity Skin: Wound (stage 1 sacral ulcer ) Musculoskeletal: Sensory Deficit (paraplegic ) Psychiatric: Normal Mood Description: Calm Affect: Normal Speech Pattern: Appropriate - Laboratory and Diagnostics Result Diagrams: 10/04/17 04:05 10/04/17 04:05 Labs: 10/01/17 17:05 Urine,Clean Catch Urine Culture - Final Escherichia Coli Laboratory WBC 17.4 X10^3/uL (3.6-10.0) H 10/04/17 04:05 RBC 2.68 X10^6/uL (4.7-6.0) L 10/04/17 04:05 Hgb 7.5 g/dL (13.5-18.0) L 10/04/17 04:05 Hct 22.9 % (42.0-54.0) L 10/04/17 04:05 MCV 85.5 fL (80.0-100.0) 10/04/17 04:05 MCH 27.9 pg (27.0-34.0) 10/04/17 04:05 MCHC 32.6 g/dL (33.0-35.0) L 10/04/17 04:05 RDW 17.5 % (11.6-16.5) H 10/04/17 04:05 Plt Count 611 X10^3/uL (150.0-450.0) H 10/04/17 04:05 Plt Count Comment Increased (ADEQUATE) 10/04/17 04:05 MPV 6.9 fL (7.4-11.0) L 10/04/17 04:05 Neut % (Auto) 83.1 % (42.0-75.0) H 10/04/17 04:05 Lymph % (Auto) 4.7 % (21.0-51.0) L 10/04/17 04:05 [place] % (Auto) 11.7 % (0.0-13.0) 10/04/17 04:05 Eos % (Auto) 0.2 % (0.9-2.9) L 10/04/17 04:05 Baso % (Auto) 0.3 % (0.2-1.0) 10/04/17 04:05 Neut # (Auto) 14.5 x10^3/uL (2.2-4.8) H 10/04/17 04:05 Lymph # (Auto) 0.8 X10^3/uL (1.3-2.9) L 10/04/17 04:05 [place] # (Auto) 2.0 x10^3/uL (0.3-0.8) H 10/04/17 04:05 Eos # (Auto) 0.0 x10^3/uL (0.0-0.2) 10/04/17 04:05 Baso # (Auto) 0.1 X10^3/uL (0.0-0.1) 10/04/17 04:05 Absolute Nucleated RBC 0.2 /100WBC 10/04/17 04:05 Plt Morphology Comment Normal (NORMAL) 10/04/17 04:05 RBC Morphology Abnormal (NORMAL) 10/04/17 04:05 Hypochromasia Slight A 10/04/17 04:05 Anisocytosis Slight A 10/04/17 04:05 Sodium 136 mmol/L (136-145) 10/04/17 04:05 Corrected Sodium 137 mmol/L (136-145) 10/04/17 04:05 Potassium 3.5 mmol/L (3.5-5.1) 10/04/17 04:05 Chloride 99 mmol/L (98-107) 10/04/17 04:05 Carbon Dioxide 35.3 mmol/L (21-32) H 10/04/17 04:05 BUN 8 mg/dL (7-18) 10/04/17 04:05 Creatinine 0.47 mg/dL (0.70-1.30) L 10/04/17 04:05 Est GFR (MDRD) Af Amer > 60 (>60) 10/04/17 04:05 Est GFR (MDRD) Non-Af > 60 (>60) 10/04/17 04:05 Glucose 149 mg/dL (65-99) H 10/04/17 04:05 Calcium 8.0 mg/dL (8.5-10.1) L 10/04/17 04:05 Corrected Calcium 10.3 mg/dL (8.5-10.1) H 10/04/17 04:05 Magnesium 1.5 mg/dL (1.7-2.9) L 10/04/17 04:05 Total Bilirubin 0.20 mg/dL (0.2-1.0) 10/04/17 04:05 AST 25 Units/L (15-37) 10/04/17 04:05 ALT 18 Units/L (12-78) 10/04/17 04:05 Alkaline Phosphatase 181 Units/L (46-116) H 10/04/17 04:05 Total Protein 4.9 g/dL (6.4-8.2) L 10/04/17 04:05 Albumin 1.1 g/dL (3.4-5.0) L 10/04/17 04:05 Globulin 3.8 g/dL (2.5-4.5) 10/04/17 04:05 Albumin/Globulin Ratio 0.3 Ratio (1.1-2.1) L 10/04/17 04:05 Specimen Type Catherized urine 10/01/17 17:06 Urine Color Yellow (YELLOW) 10/01/17 17:06 Urine Appearance Cloudy (CLEAR) 10/01/17 17:06 Urine pH 6.0 (5.0 - 8.0) 10/01/17 17:06 Ur Specific [place] 1.020 (1.000-1.030) 10/01/17 17:06 Urine Protein 2+ (NEGATIVE) 10/01/17 17:06 Urine Glucose (UA) Negative (NEGATIVE) 10/01/17 17:06 Urine Ketones Negative (NEGATIVE) 10/01/17 17:06 Urine Occult Blood 2+ (NEGATIVE) 10/01/17 17:06 Urine Nitrite Positive (NEGATIVE) 10/01/17 17:06 Urine Bilirubin Negative (NEGATIVE) 10/01/17 17:06 Urine Urobilinogen Normal (NORMAL) 10/01/17 17:06 Ur Leukocyte Esterase 3+ (NEGATIVE) 10/01/17 17:06 Urine RBC 0-2 /HPF (NONE SEEN) 10/01/17 17:06 Urine WBC Tntc /HPF (NONE SEEN) 10/01/17 17:06 Ur Squamous Epith Cells Rare /HPF (NEGATIVE) 10/01/17 17:06 Amorphous Sediment Trace /HPF (NEGATIVE) 10/01/17 17:06 Urine Bacteria 4+ /HPF (NEGATIVE) 10/01/17 17:06 Ur Culture Indicated? Yes/culture set up 10/01/17 17:06 Blood Type O POSITIVE 10/03/17 19:48 Antibody Screen Positive 10/03/17 19:48 Antibody Identification Anti-Fya Anti-Jka 10/03/17 19:48 Antibody Identification Anti-Fya Anti-Jka 10/03/17 19:48 Crossmatch See Detail 10/03/17 19:48 - Plan (1) Palliative care status Status: Acute Plan: DILAUDID AND VERSED DRIPS, CONTINUE TO MONITOR (2) Urinary tract infection Status: Acute Qualifiers: Urinary tract infection type: acute cystitis Hematuria presence: without hematuria Qualified Code(s): N30.00 - Acute cystitis without hematuria Plan: continue to monitor (3) Shortness of breath Status: Acute Plan: supplemental oxygen, continue to monitor (4) Anemia Status: Acute Qualifiers: Anemia type: iron deficiency Iron deficiency anemia type: unspecified iron deficiency Qualified Code(s): D50.9 - Iron deficiency anemia, unspecified (5) Malignant melanoma, metastatic Status: Chronic Plan: continue to monitor
--- NOTE | 2017-11-05 19:39 | DR.DECEASE ---
Form - Labs Result Diagrams: 10/04/17 04:05 10/04/17 04:05 - Hospital Course Hospital Course: is a 42 year old patient of ours who presented to the hospital as a direct admission for complaints of shortness of breath and abdominal pain. Patient had a known history of malignant melanoma with metastasis. He was recently being treated in [facility] in [place] where a pleurx catheter system was placed to drain off excessive fluid from lungs. Patient was released home one day ago with visiting nurses. Patient became increasingly short of breath, weak, and began having abdominal pain. Additional medical history included: Migraines, Heart Murmur, Gerd, Constipation, Diarrhea , Neuromuscular Dysfunction of the bladder, Back Pain, Paraplegia, Polyneuropathy, Anemia, and Anxiety. On examination, abdomen was noted to be distended. Scrotal edema was also noted. There was a stage one sacral ulcer noted without drainage. On arrival, vitals were [id number]-114/68. Labs were obtained. Abnormal lab values included the following: Abnormal Labs: WBC 13.7, RBC 2.66, Hgb 7.5, Hct 22.4, RDW 17.7, Plt Count 528, MPV 6.7, Sodium 131 , Corrected Sodium 132, Potassium 3.4, Chloride 97, Carbon Dioxide 32.1, Creatinine 0.48, Glucose 142, Calcium 7.4, Alk Phos 148, Total Protein 4.3, Albumin 1.0, A/G Ratio 0.3. Urinalysis: Catherized, Cloudy, Protein 2+, Occult Blood 2+, Nitrite Positive, Leuk Est 3+, RBC 0-2, WBC Tntc, Bacteria 4+, Culture obtained. Chest X-Ray: Stable chest. He was placed on cipro 750mg po BID and home medications were resumed. Family reported that they were unable to care for patient at home and requested that he return to a half-way care facility. We continued to monitor patient. Urine culture reported E-coli, and antibiotics were adjusted per culture and sensitivity. Patient became difficult to arouse and family requested only palliative measures. A DNR was obtained. We started a Morphine and Versed drip for comfort and continued to monitor. Patient passed peacefully with family at bedside on 10/07/17 at 13:12. - Expiration Expiration Date: 10/07/17 Expiration Time: 13:12 Pronounced by: Preliminary Cause of : cardiac respiratory arrest. - Admission Diagnosis Patient Problems: Problems Palliative care status (Acute) Z51.5 Shortness of breath (Acute) R06.02 Malignant melanoma, metastatic (Chronic) C79.9 Urinary tract infection (Acute) N39.0 Anemia (Acute) D64.9 Anxiety (Acute) F41.9 Abdominal pain (Acute) R10.9
== END 2017-10-07 13:12 | disposition home or self-care (01) | DRG 843 ==
LOC: MED/SURG
PROVIDERS: ADMIT Internal Medicine; ATTEND Internal Medicine
DX: N30.00 Acute cystitis without hematuria; L89.151 Pressure ulcer of sacral region, stage 1; I10 Essential (primary) hypertension; B96.29 Other Escherichia coli [E. coli] as the cause of diseases classified elsewhere; R60.0 Localized edema; R06.02 Shortness of breath; D50.9 Iron deficiency anemia, unspecified; I46.9 Cardiac arrest, cause unspecified; N50.89 Other specified disorders of the male genital organs; K21.9 Gastro-esophageal reflux disease without esophagitis; Z51.5 Encounter for palliative care; F41.8 Other specified anxiety disorders; D64.9 Anemia, unspecified; R10.84 Generalized abdominal pain; G82.20 Paraplegia, unspecified; C79.9 Secondary malignant neoplasm of unspecified site
CPT/HCPCS: 36415; 71010; 71045; 80053; 81001; 83735; 85025; 86850; 86860; 86880; 86885; 86900; 86901; 86905; 86906; 86922; 86970; 87086; 87088; 87186; 93005; 94760; 99282; 99285; A4216; A4222; G0378; J1335; J2060; J2270; J2271; J2405; J7050; S0181